=== PATIENT | female | born 1995 | race African-American/Black ===

== ENCOUNTER → 2017-02-03 | Outpatient (CLI) | payer OTHER ==
[2017-02-03 11:54] LABS: CH 31.5; CHCM 34.9; HCT 35.8 % (34.0-46.0); HDW 2.58; HGB 12.3 gm/dL (11.4-16.0); MCH 31.3 pg (25.0-35.0); MCHC 34.5 g/dL (31.0-37.0); MCV 90.7 fL (80.0-100.0); Mean Platelet Volume 9.2; RBC 3.94 m/uL (3.80-5.40); RDW 13.5 % (11.5-15.5); WBC 5.4 k/uL (4.0-11.0)
[2017-02-03 12:14] LABS: Glucose 76 mg/dL (74-99); Non-African American GFR(MDRD) >60 (>60 ml/min/1.73 sqM)
--- NOTE | 2017-02-03 12:19 | US ---
EXAMINATION TYPE: US OB <= 14 wk fetus DATE OF EXAM: 02/03/2017 COMPARISON: NONE CLINICAL HISTORY: Z36 CONFIRM DATES. EXAM PERFORMED: Transabdominal (TA) EXAM MEASUREMENTS: GESTATIONAL AGE / DATING Physician Established: not established Dates by LMP: (12 weeks/2 days) EDC: 08/16/17 Dates by First Scan: no prior scan Dates by Current Scan for: (10 weeks/3 days) EDC: 08/29/17 MATERNAL ANATOMY Uterus: 11.6 x 6.0 x 8.0cm Right Ovary: unable to visualize Left Ovary: 2.7 x 1.6 x 1.3cm Post CDS / Adnexa: small amount of free fluid posterior cul-de-sac Presence of free fluid: yes GESTATION / SURVEY CRL: 3.6cm (10 weeks/3 days) Yolk Sac (normal less than 6mm): 0.2cm Heart Rate: 168 bpm Rhythm: Normal IUP: Viable IUP Date of LMP: 11/09/16 Beta HcG (if available): unavailable Single viable IUP 10wks/3days with DIEGO of 08/29/17. Small amount of free fluid posterior cul-de-sac Single live intrauterine gestation is seen as gestational sac, yolk sac, and pole are identifie d. Tiny amount of free fluid is seen in pelvic cul-de-sac on image 24. Left ovary is seen. Right ovary is not clearly identified. No suspicious extraovarian adnexal mass is present. IMPRESSION: Single live intrauterine gestation is seen, mean crown-rump length is 3.6 cm corresponding to a 10 we ek 3 day old fetus.
[2017-02-03 12:48] LABS: Hepatitis B Surface Ag Index 0.05
[2017-02-03 16:15] LABS: Treponemal Ab Non-Reactive (Non-Reactive)
== END | disposition home or self-care (01) ==
LOC: RADUSWWP 10:54
PROVIDERS: ATTEND Obstetrics & Gynecology
DX: O26.811 Pregnancy related exhaustion and fatigue, first trimester (principal); Z3A.10 10 weeks gestation of pregnancy
CPT/HCPCS: 76801; 82565; 82947; 85027; 86762; 86780; 86850; 86900; 86901; 87340; 87390

== ENCOUNTER → 2017-03-24 | Outpatient (CLI) | payer BC, OTHER | END | disposition home or self-care (01) | LOC: LABWHC1 12:57 | PROVIDERS: ATTEND Obstetrics & Gynecology | DX: Z34.82 Encounter for supervision of other normal pregnancy, second trimester (principal) | CPT/HCPCS: 36415; 82105; 82677; 84702; 86336 ==

== ENCOUNTER 2017-05-01 21:06 | Outpatient (CLI) | payer BC, OTHER ==
[2017-05-01 22:04] VITALS: BP 115/73; PULSE 78; RESP 16; TEMP 97.3
[2017-05-01 22:09] LABS: Appearance,Urine Clear (Clear); Bacteria,Urine Rare /hpf; Bilirubin,Urine Negative (Negative); Glucose,Urine (UA) Negative (Negative); Ketones,Urine Negative (Negative); Leukocyte Esterase,Urine Small (Negative); Mucus,Urine Few /hpf; Nitrite,Urine Negative (Negative); Particle Count 5687; Protein,Urine Trace (Negative); RBC,Urine <1 /hpf (0-5); Specific Gravity,Urine 1.022 (1.001-1.035); Squamous Epithelial Cell,Urine 2 /hpf (0-4); UA Billing (MACRO vs. MICRO) MICRO; Urobilinogen,Urine <2.0 mg/dL (<2.0); WBC,Urine 15 /hpf (0-5)
[2017-05-01] MEDS ORDERED: ceFAZolin 2,000 MG in DEXTROSE/WATER 1 50ML.BAG IVPB STA (22:33)
[2017-05-01] MEDS ORDERED: LACTATED RINGERS 1,000 ML IV SCH (22:45)
[2017-05-01] MEDS ORDERED: ceFAZolin IN SWFI 2 GM/20 ML SYRINGE IVP ONE (22:45)
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
== END 2017-05-01 23:30 | disposition home or self-care (01) ==
LOC: FBPOP 21:06
PROVIDERS: ATTEND Obstetrics & Gynecology
DX: O23.42 Unspecified infection of urinary tract in pregnancy, second trimester (principal); Z3A.22 22 weeks gestation of pregnancy
CPT/HCPCS: 99214; 96360; 96375; 81001; 80306; 87086; J0690

== ENCOUNTER 2018-06-01 09:05 | Outpatient (CLI) | payer BC, OTHER ==
[2018-06-01 09:45] VITALS: BP 115/65; PULSE 78; RESP 16; TEMP 97.1
[2018-06-01] MEDS ORDERED: BETAMET ACET-BETAMETH SOD PHOS 6 MG/ML VIAL IM SCH (10:30)
--- NOTE | 2018-06-01 14:03 | P.MSEPDOC ---
Presenting Problems - Arrival Data Date of Arrival on Unit: 06/01/18 Time of Arrival on Unit: 09:04 Mode of Transport: Ambulatory - Complaint OB-Reason for Admission/Chief Complaint: Other Comment: cramping for 2 weeks, seen in [facility] and told if cramping continues to be seen Medical History - Information : 2 Para: 1 Term: 0 : 1 Abortions: Spontaneous or Elective: 0 Number of Living Children: 1 - Gestational Age Gestational Age by DIEGO (wks/days): 27 Weeks and 1 Days - History Complications: Prior Review of Systems - Review of Systems Constitutional: No problems Breast: No problems ENT: No problems Cardiovascular: No problems Respiratory: No problems Gastrointestinal: No problems Genitourinary: No problems Musculoskeletal: No problems Neurological: No problems Skin: No problems Vital Signs - Temperature Temperature: 97.1 F Temperature Source: Temporal Artery Scan - Pulse Right Sitting Brachial Pulse Rate: 78 Pulse Assessment Method: Automatic Cuff - Respirations Respiratory Rate: 16 O2 Sat by Pulse Oximetry: 99 - Blood Pressure Right Arm Blood Pressure: 115/65 Blood Pressure Mean: 81 Blood Pressure Source: Automatic Cuff Medical Screen Scoring (Pre) - Cervical Exam Dilation: 0 cm = 0 Membranes: Intact - Uterine Contractions Frequency: N/A Duration: N/A Intensity: N/A - Maternal Vital Signs Maternal Temperature: N/A Maternal Blood Pressure: N/A Signs of Preeclampsia: N/A Maternal Respirations: N/A - Pain Assessment Pain Location and Character: Abdomen Pain Scale Used: Numeric (1 - 10) Pain Intensity: 6 Pain Description: *Acute, Cramping Pain Radiation Location: none Pain Frequency: Intermittent Pain Duration Units: cramp/contraction lasts less than a minute Pain Behavior: None Exhibited Pain Aggravating Factors: Activity, Lifting, Walking - Maternal Trauma Maternal Trauma: N/A - Assessment Baseline FHR: 145 Heart Rate - NICHD Category: Category I (Normal) = 0 Position: N/A Station: N/A - Total Score Total Score (Pre): 0 - Level of Risk Level of Risk: Low (0-5) Physician Notification (Pre) - Physician Notified Physician Notified Date: 06/01/18 Physician Notified Time: 09:22 Physician/Practitioner Notifed:: PAULA New Order Received: Yes - Notification Comment Comment: FFN positive-Dr Hackett notified at 1022, orders for celestone 12mg IM, repeat dose in 24 hours. Pt to be off work and on pelvic rest Disposition - Disposition OB Disposition: Discharge to home, Written follow up instructions reviewed Discharge Date: 06/01/18 Discharge Time: 10:45 I agree with the RN Medical Screening Exam: Yes Risk & Benefit of care provided described in d/c instruction: Yes Diagnosis: FALSE LABOR BEFORE 37 COMPLETED WEEKS OF GEST, SECOND TRI
== END 2018-06-01 10:45 | disposition home or self-care (01) ==
LOC: FBPOP 09:05
PROVIDERS: ATTEND Obstetrics & Gynecology
DX: O47.02 False labor before 37 completed weeks of gestation, second trimester (principal); Z3A.27 27 weeks gestation of pregnancy
CPT/HCPCS: 99214; 96372; 82731; J0702

== ENCOUNTER 2018-06-02 10:58 | Outpatient (CLI) | payer BC, OTHER ==
[2018-06-02] MEDS ORDERED: BETAMET ACET-BETAMETH SOD PHOS 6 MG/ML VIAL IM SCH (11:15)
[2018-06-02 11:33] VITALS: BP 108/63; PULSE 96; RESP 16; TEMP 98.4
--- NOTE | 2018-06-02 12:00 | P.MSEPDOC ---
Presenting Problems - Arrival Data Date of Arrival on Unit: 06/02/18 Time of Arrival on Unit: 11:01 Mode of Transport: Ambulatory - Complaint OB-Reason for Admission/Chief Complaint: Celestone Injection Comment: pt here for second dose of celestone Medical History - Information : 2 Para: 1 Term: 0 : 1 Abortions: Spontaneous or Elective: 0 Number of Living Children: 1 - Gestational Age Gestational Age by DIEGO (wks/days): 27 Weeks and 2 Days Review of Systems - Review of Systems Constitutional: No problems Breast: No problems ENT: No problems Cardiovascular: No problems Respiratory: No problems Gastrointestinal: No problems Genitourinary: No problems Musculoskeletal: No problems Neurological: No problems Skin: No problems Vital Signs - Temperature Temperature: 98.4 F Temperature Source: Oral - Pulse Right Brachial Pulse Rate: 96 Pulse Assessment Method: Automatic Cuff - Respirations Respiratory Rate: 16 Oxygen Delivery Method: Room Air O2 Sat by Pulse Oximetry: 98 - Blood Pressure Right Arm Blood Pressure: 108/63 Blood Pressure Mean: 78 Blood Pressure Source: Automatic Cuff Medical Screen Scoring (Pre) - Cervical Exam Dilation: Exam Deferred Effacement: Exam Deferred - Uterine Contractions Frequency: N/A Duration: N/A Intensity: Contraction palpated strong = 1 - Maternal Vital Signs Maternal Temperature: N/A Maternal Blood Pressure: N/A Signs of Preeclampsia: N/A Maternal Respirations: N/A - Pain Assessment Pain Scale Used: Numeric (1 - 10) Pain Intensity: 0 Pain Management Goal: 0 Pain Behavior: Vocalization - Maternal Trauma Maternal Trauma: N/A - Assessment Baseline FHR: 140 Heart Rate - NICHD Category: Category I (Normal) = 0 Position: N/A Station: N/A - Total Score Total Score (Pre): 1 - Level of Risk Level of Risk: Low (0-5) Physician Notification (Pre) - Physician Notified Physician Notified Date: 06/02/18 Spoke With: dr short New Order Received: No - Notification Comment Comment: may discharge to home Disposition - Disposition OB Disposition: Discharge to home Discharge Date: 06/02/18 Discharge Time: 11:30 I agree with the RN Medical Screening Exam: Yes Risk & Benefit of care provided described in d/c instruction: Yes Diagnosis: LABOR SECOND TRI W DEL SECOND TRI, FETUS 1 (celestone )
== END 2018-06-02 11:30 | disposition home or self-care (01) ==
LOC: FBPOP 10:58
PROVIDERS: ATTEND Obstetrics & Gynecology
DX: O60.12X1 Preterm labor second trimester with preterm delivery second trimester, fetus 1 (principal); Z3A.27 27 weeks gestation of pregnancy
CPT/HCPCS: 99214; 96372; J0702

== ENCOUNTER 2018-06-22 12:03 | Outpatient (CLI) | payer BC, OTHER ==
[2018-06-22] MEDS ORDERED: LACTATED RINGERS 1,000 ML IV ONE (12:09)
[2018-06-22] MEDS ORDERED: INDOMETHACIN 25 MG CAP PO STA (12:10)
[2018-06-22] MEDS ORDERED: BETAMET ACET-BETAMETH SOD PHOS 6 MG/ML VIAL IM SCH (12:15)
[2018-06-22] MEDS ORDERED: LACTATED RINGERS 1,000 ML IV SCH (12:15)
[2018-06-22 12:41] LABS: Basophils % (A) 0 %; Eosinophils # (A) 0.1 k/uL (0-0.7); Eosinophils % (A) 2 %; HCT 35.4 % (34.0-46.0); HGB 11.9 gm/dL (11.4-16.0); Lymphocytes # (A) 1.7 k/uL (1.0-4.8); Lymphocytes % (A) 25 %; MCH 30.3 pg (25.0-35.0); MCHC 33.5 g/dL (31.0-37.0); MCV 90.3 fL (80.0-100.0); Monocytes # (A) 0.4 k/uL (0-1.0); Monocytes % (A) 6 %; Neutrophils # (A) 4.4 k/uL (1.3-7.7); Neutrophils % (A) 64 %; Platelet Count 120 k/uL (150-450); RBC 3.92 m/uL (3.80-5.40); RDW 13.1 % (11.5-15.5); WBC 6.9 k/uL (4.0-11.0)
--- NOTE | 2018-06-22 12:55 | P.TRANS ---
Providers Date of admission: 06/22/2018 Expected date of discharge: 06/22/18 Attending physician: Kathie Hackett Primary care physician: Stated None Hospital Course: This is a 22-year-old female 3 para 1 with an estimated date of confinement of 08/30/2018, estimated gestational age of 30 and one sevenths weeks, who presented to the office for routine visit today. She complained of cramping in her lower abdomen since last night that have been occurring very frequently every few minutes. She stated it continued up until her appointment time today. Her cervix was noted to be 4 cm/60%/-2 station in the office today. Last week she was noted to be 3-3-1/2 cm but she was not feeling any contractions at that time. She did receive Celestone 2 doses on June 02 and . She is also been getting [place] injections weekly. Her last baby delivered at 29 weeks' after spontaneous rupture of membranes. She has been seen by maternal- medicine during this and has been on bedrest and pelvic rest. I spoke with Dr. Ortiz today and he recommends that she get another dose of steroids and be transported to [facility] in [place] for high risk care. She was also given 1 dose of Indocin 100 mg by mouth in triage. She currently denies feeling any cramping at this time. She is not showing any regular contractions on the monitor. Her REBECCA in the office today was 16.1. Fetus was in the vertex presentation. She will be transported by ambulance to [facility] under the care of Dr. Ortiz. Patient Condition at Discharge: Stable Plan - Transfer Summary Transfer Medications: Active Medications Generic Name Dose Route Start Last Admin Trade Name Freq PRN Reason Stop Dose Admin Betamethasone Acet/Betameth SodPhos 12 mg 06/22/18 12:15 06/22/18 12:19 Celestone Soluspan IM 06/23/18 12:16 12 mg Q24H JEFFREY Administration Lactated Ringer's 1,000 mls @ 999 mls/hr 06/22/18 12:09 06/22/18 12:18 Lactated Ringers IV 06/22/18 13:09 999 mls/hr .Q1H1M ONE Administration Lactated Ringer's 1,000 mls @ 150 mls/hr 06/22/18 12:15 Lactated Ringers IV .Q6H40M [facility] Follow up Appointment(s)/Referral(s): Kathie Hackett DO [Doctor of Osteopathic Medicine] - 1 Week Discharge Disposition: OTHER INSTITUTION NOT DEFINED - Out of Hospital Transfer - Req. Specs Out of Hospital Transfer - Requested Specifics: Other Non-Acute (Maternal- medicine/high risk obstetrics)
[2018-06-22 14:15] VITALS: BP 123/58; PULSE 89; RESP 16; TEMP 98.2
--- NOTE | 2018-06-24 07:31 | P.MSEPDOC ---
Presenting Problems - Arrival Data Date of Arrival on Unit: 06/22/18 Time of Arrival on Unit: 12:00 Mode of Transport: Ambulatory - Complaint OB-Reason for Admission/Chief Complaint: Rule Out PROM Comment: PT SENT FROM OFFICE AND DR MITCHELL AT BEDSIDE Medical History - Information : 3 Para: 1 Term: 0 : 1 Abortions: Spontaneous or Elective: 1 Number of Living Children: 1 - Gestational Age Gestational Age by DIEGO (wks/days): 30 Weeks and 1 Days - History Complications: Incompetent Cervix Review of Systems - Review of Systems Constitutional: No problems Breast: No problems ENT: No problems Cardiovascular: No problems Respiratory: No problems Gastrointestinal: No problems Genitourinary: No problems Musculoskeletal: No problems Neurological: No problems Skin: No problems Vital Signs - Temperature Temperature: 98.2 F Temperature Source: Oral - Pulse Sitting Pulse Rate: 89 Pulse Assessment Method: Automatic Cuff - Respirations Respiratory Rate: 16 Oxygen Delivery Method: Room Air - Blood Pressure Sitting Blood Pressure: 123/58 Blood Pressure Mean: 79 Blood Pressure Source: Automatic Cuff Medical Screen Scoring (Pre) - Cervical Exam Dilation: 4-7 cm = 2 Membranes: Intact - Uterine Contractions Frequency: N/A - Maternal Vital Signs Maternal Temperature: N/A Signs of Preeclampsia: N/A - Pain Assessment Pain Scale Used: Numeric (1 - 10) Pain Intensity: 0 Pain Management Goal: 0 Pain Duration: 0 Pain Behavior: None Exhibited - Assessment Baseline FHR: 140 Heart Rate - NICHD Category: Category I (Normal) = 0 NST: Reactive Position: N/A Station: N/A - Total Score Total Score (Pre): 2 - Level of Risk Level of Risk: Low (0-5) Physician Notification (Pre) - Physician Notified Physician Notified Date: 06/22/18 Physician Notified Time: 12:30 Physician/Practitioner Notifed:: DR MITCHELL New Order Received: Yes - Notification Comment Comment: AT BEDSIDE Disposition - Disposition OB Disposition: Transfer to other dept./facility Discharge Date: 06/22/18 Discharge Time: 14:15 I agree with the RN Medical Screening Exam: Yes Risk & Benefit of care provided described in d/c instruction: Yes Diagnosis: LABOR WITHOUT DELIVERY, THIRD TRIMESTER
== END 2018-06-22 14:16 | disposition other institution (70) ==
LOC: FBPOP 12:03
PROVIDERS: ATTEND Obstetrics & Gynecology
DX: O60.03 Preterm labor without delivery, third trimester (principal); Z3A.30 30 weeks gestation of pregnancy
CPT/HCPCS: 59025; 96360; 96361; 96372; 85025; J0702

== ENCOUNTER 2018-08-01 09:36 | Inpatient (IN) | payer BC, OTHER ==
[2018-08-01] MEDS ORDERED: LIDOCAINE 0.5% (PF) 5 MG/ML (50 ML SDV) SQ PRN (09:44)
[2018-08-01] MEDS ORDERED: TERBUTALINE 1 MG/ML VIAL SQ PRN (09:44)
[2018-08-01] MEDS ORDERED: METHYLERGONOVINE 0.2 MG/ML 1 ML AMP IM PRN (09:44)
[2018-08-01] MEDS ORDERED: OXYTOCIN 10 UNIT/ML 1 ML VIAL IM PRN (09:44)
[2018-08-01] MEDS ORDERED: CARBOPROST TROMETHAMINE 250 MCG/ML 1 ML AMP IM PRN (09:44)
[2018-08-01] MEDS ORDERED: AMPICILLIN 2,000 MG in SODIUM CHLORIDE 0.9% 100 ML IVPB STA (09:44)
[2018-08-01] MEDS ORDERED: OXYTOCIN 20 UNITS/1000 ML NS 1,000 ML IV SCH ×2 (09:45→13:59)
[2018-08-01] MEDS ORDERED: LACTATED RINGERS 1,000 ML IV SCH (09:45)
[2018-08-01 10:02] LABS: Basophils % (A) 0 %; Eosinophils # (A) 0.2 k/uL (0-0.7); Eosinophils % (A) 3 %; HCT 33.9 % (34.0-46.0); HGB 11.1 gm/dL (11.4-16.0); Lymphocytes # (A) 2.5 k/uL (1.0-4.8); Lymphocytes % (A) 33 %; MCHC 32.8 g/dL (31.0-37.0); MCV 91.6 fL (80.0-100.0); Mean Platelet Volume 9.3; Monocytes # (A) 0.6 k/uL (0-1.0); Monocytes % (A) 8 %; Neutrophils # (A) 4.2 k/uL (1.3-7.7); Neutrophils % (A) 54 %; Platelet Count 158 k/uL (150-450); RDW 13.7 % (11.5-15.5); WBC 7.8 k/uL (4.0-11.0)
[2018-08-01 10:06] VITALS: BMI 27.2
[2018-08-01] MEDS ORDERED: BUTORPHANOL 1 MG/ML 1 ML VIAL IV PRN (11:49)
--- NOTE | 2018-08-01 13:29 | P.HPOB ---
History of Present Illness H&P Date: 08/01/18 Chief Complaint: Advanced cervical dilation This is a 22-year-old female 3 para 1 with an estimated date of confinement of 08/30/2018, estimated gestational age of 35-6/7 weeks, who presents to labor and delivery after being seen in the office today for her routine visit and found to be 7 cm. She denies feeling any regular contractions. She did have some vaginal bleeding was some small clots week ago but has had none since that time. Last week she was noted to be 5 cm. She has had a history of labor during this and has been seen by maternal medicine throughout the . She has been on [place] weekly up until 35 weeks and did receive Celestone 2 doses in May. She has been dilated since approximately 28 weeks. labs: GC/chlamydia-negative Hepatitis B surface antigen-negative RPR-nonreactive Rubella-immune Blood type-80 positive Antibody screen-negative HIV-nonreactive Hemoglobin-12.5 Random glucose-52 One hour Glucola-85 Obstetrical history: . History of 1 delivery at 29 weeks' vaginally and 1 miscarriage. Gynecologic history: She has been treated for chlamydia in the past and also for Trichomonas. Social history: She is single. 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 Review of Systems Constitutional: Denies chills, Denies fever Eyes: denies blurred vision, denies pain Ears, nose, mouth and throat: Denies headache, Denies sore throat Cardiovascular: Denies chest pain, Denies shortness of breath Gastrointestinal: Reports abdominal pain (Occasional contraction) Genitourinary: Reports pelvic pain, Reports Musculoskeletal: Reports low back pain Integumentary: Denies pruritus, Denies rash Neurological: Denies numbness, Denies weakness Psychiatric: Denies anxiety, Denies depression Past Medical History Past Medical History: No Reported History History of Any Multi-Drug Resistant Organisms: None Reported Past Surgical History: No Surgical Hx Reported Past Anesthesia/Blood Transfusion Reactions: No Reported Reaction Past Psychological History: No Psychological Hx Reported Smoking Status: Never smoker Past Alcohol Use History: None Reported Past Drug Use History: None Reported Medications and Allergies Home Medications Medication Instructions Recorded Confirmed Type RX: Pnv 11/Iron Fum/Folic Acid/Om3 1 tab PO DAILY 05/01/17 06/02/18 History [Virt-Soham Dha Softgel] Allergies Allergy/AdvReac Type Severity Reaction Status Date / Time peanut Allergy Itching Verified 08/01/18 09:43 Exam Osteopathic Statement: *. No significant issues noted on an osteopathic structural exam other than those noted in the History and Physical/Consult. Vital Signs Temp Pulse Resp BP 08/01/18 09:42 97.8 F 100 18 109/66 Intake and Output 07/31/18 08/01/18 08/01/18 22:59 06:59 14:59 Other: Weight 69.763 kg HEENT: Within normal limits Heart: Regular rate and rhythm Lungs: Clear to auscultation bilaterally Abdomen: Cervix: 7 cm/60-70%/-2 station heart tones: Reactive Contractions: Irregular Extremities: Negative Homans Results Result Diagrams: 08/01/18 09:48 Abnormal Lab Results - Last 24 Hours (Table) 08/01/18 Range/Units 09:48 RBC 3.70 L (3.80-5.40) m/uL Hgb 11.1 L (11.4-16.0) gm/dL Hct 33.9 L (34.0-46.0) % Assessment and Plan (1) 35 weeks gestation of Current Visit: Yes Status: Acute Code(s): Z3A.35 - 35 WEEKS GESTATION OF SNOMED Code(s): 68960247 (2) labor in third trimester Current Visit: Yes Status: Acute Code(s): O60.03 - LABOR WITHOUT DELIVERY, THIRD TRIMESTER SNOMED Code(s): 2246412 Plan: Admission for advanced cervical dilation. Artificial rupture membranes and oxytocin augmentation of labor. Antibiotic prophylaxis secondary to unknown group B streptococcus. Expectant management.
--- NOTE | 2018-08-01 13:55 | P.PROBDLV ---
Vaginal Delivery Note - . Vaginal Delivery Note: The patient progressed to about 9-1/2 cm and had an uncontrollable urge to push. She began pushing and cervix did stretch to complete with pushing. 's head came to a crown and then delivered across the perineum followed by the anterior shoulder. She was not able to stop pushing and nuchal cord times one was reduced around the body with delivery. was placed on mother's abdomen and nose and mouth were bulb suctioned. Cord was clamped and cut and was taken to warmer for evaluation. A viable male is noted with scores of 8 at 1 minute and 8 at 5 minutes. weight is pending at this time. Placenta delivered shortly thereafter, intact, with a three-vessel cord. Uterus contracted well after oxytocin was given and uterine massage was carried out. Inspection of the perineum revealed a small first- degree perineal laceration. This area was anesthetized with 1% lidocaine and sutured with 3-0 Vicryl suture in a running locked fashion. Estimated blood loss is approximately 100 mL's. Both mother and infant are in stable condition.
[2018-08-01] MEDS ORDERED: SIMETHICONE 80 MG CHEWABLE PO PRN (13:59)
[2018-08-01] MEDS ORDERED: WITCH HAZEL 1 EACH MED..PAD TOPICAL PRN (13:59)
[2018-08-01] MEDS ORDERED: HYDROCORTISONE 2.5% RECTAL CREAM 30 GM TUBE RECTAL PRN (13:59)
[2018-08-01] MEDS ORDERED: diphenhydrAMINE 25 MG CAP PO PRN (13:59)
[2018-08-01] MEDS ORDERED: BENZOCAINE/MENTHOL SPRAY 1 GM/SPRAY AEROSOL TOPICAL PRN (13:59)
[2018-08-01] MEDS ORDERED: diphenhydrAMINE 50 MG/ML 1 ML VIAL IVP PRN ×2 (13:59)
[2018-08-01] MEDS ORDERED: LANOLIN CREAM 5 GM TUBE TOPICAL PRN (13:59)
[2018-08-01] MEDS ORDERED: diphenhydrAMINE 50 MG CAP PO PRN (13:59)
[2018-08-01] MEDS ORDERED: ZOLPIDEM 5 MG TAB PO PRN (13:59)
[2018-08-01] MEDS ORDERED: AMPICILLIN 1,000 MG in SODIUM CHLORIDE 0.9% 50 ML IVPB SCH (14:00)
[2018-08-01] MEDS: IBUPROFEN 600 MG TAB PO PRN ×2 (14:26→21:16)
[2018-08-01] MEDS: ACETAMINOPHEN TAB 325 MG TAB PO PRN (15:33)
[2018-08-01] MEDS: SENNOSIDES-DOCUSATE SODIUM 1 EACH TAB PO SCH (22:31)
[2018-08-02] MEDS: SENNOSIDES-DOCUSATE SODIUM 1 EACH TAB PO SCH ×2 (07:40→22:25)
--- NOTE | 2018-08-02 08:00 | P.PNOBGVD ---
Subjective - Subjective Principal diagnosis: Status post vaginal delivery day #1 Interval history: Patient is doing okay. Pain is fairly well controlled with oral pain medication. Lochia is decreasing. She is attempting to pump breastmilk but has not had any milk and then yet. Baby is in level I nursery on oxygen. Patient reports: Reports appetite normal, Reports voiding normally, Reports pain well controlled, Reports ambulating normally : other (In level I nursery) Objective - Latest Vital Signs Latest vital signs: Vital Signs Temp Pulse Resp BP 08/02/18 04:00 98.4 F 89 16 106/70 08/01/18 23:24 98.6 F 82 16 105/63 08/01/18 20:00 98.2 F 80 16 112/72 08/01/18 16:00 98.1 F 76 18 106/61 08/01/18 15:30 97.5 F L 86 18 107/64 08/01/18 15:00 98.2 F 80 18 112/67 08/01/18 14:45 86 111/63 08/01/18 14:30 97.3 F L 89 18 110/63 08/01/18 14:15 93 116/64 08/01/18 14:00 97.8 F 87 18 107/52 08/01/18 09:42 97.8 F 100 18 109/66 Intake and Output 08/01/18 08/02/18 08/02/18 22:59 06:59 14:59 Other: # Voids 1 1 - Exam Extremities: Present: normal. Absent: tenderness, edema Abdomen: Present: normal appearance, soft. Absent: distention, tenderness Uterus: Present: normal, firm. Absent: tenderness - Labs Labs: Abnormal Lab Results - Last 24 Hours (Table) 08/01/18 Range/Units 09:48 RBC 3.70 L (3.80-5.40) m/uL Hgb 11.1 L (11.4-16.0) gm/dL Hct 33.9 L (34.0-46.0) % Assessment and Plan Assessment: Status post vaginal delivery day #1 (1) 35 weeks gestation of Current Visit: Yes Status: Acute Code(s): Z3A.35 - 35 WEEKS GESTATION OF SNOMED Code(s): 72736562 (2) labor in third trimester Current Visit: Yes Status: Acute Code(s): O60.03 - LABOR WITHOUT DELIVERY, THIRD TRIMESTER SNOMED Code(s): 1135268 Plan: Continue with care. Anticipate discharge home tomorrow.
[2018-08-02 08:01] LABS: Basophils # (A) 0.1 k/uL (0-0.2); Basophils % (A) 1 %; Eosinophils # (A) 0.2 k/uL (0-0.7); Eosinophils % (A) 1 %; HCT 33.8 % (34.0-46.0); HGB 10.9 gm/dL (11.4-16.0); Lymphocytes # (A) 2.8 k/uL (1.0-4.8); Lymphocytes % (A) 23 %; MCH 29.7 pg (25.0-35.0); MCHC 32.2 g/dL (31.0-37.0); MCV 92.2 fL (80.0-100.0); Mean Platelet Volume 9.4; Monocytes # (A) 0.8 k/uL (0-1.0); Monocytes % (A) 7 %; Neutrophils # (A) 8.1 k/uL (1.3-7.7); Neutrophils % (A) 66 %; Platelet Count 177 k/uL (150-450); RBC 3.67 m/uL (3.80-5.40); RDW 13.8 % (11.5-15.5); WBC 12.3 k/uL (4.0-11.0)
[2018-08-02] MEDS: ACETAMINOPHEN TAB 325 MG TAB PO PRN (08:15)
[2018-08-02] MEDS: IBUPROFEN 600 MG TAB PO PRN (16:04)
[2018-08-03] MEDS: ACETAMINOPHEN TAB 325 MG TAB PO PRN ×2 (00:13→09:19)
--- NOTE | 2018-08-03 07:43 | P.DS ---
Providers Date of admission: 08/01/18 09:36 Expected date of discharge: 08/03/18 Attending physician: Kathie Hackett Primary care physician: Stated None - Discharge Diagnosis(es) (1) 35 weeks gestation of Current Visit: Yes Status: Acute (2) labor in third trimester Current Visit: Yes Status: Acute Hospital Course: This is a 22-year-old female 3 para 1 at 35-6/7 weeks who presented with advanced cervical dilation from the office noting to be 7 cm. She underwent oxytocin augmentation of labor and delivered vaginally a viable male with scores of 8 at 1 minute and 8 at 5 minutes. Baby did go to level I nursery for antibiotics. Her course was essentially uncomplicated. Lochia has been decreasing. Pain is fairly well controlled with Tylenol. Vital signs are stable. Abdomen is soft with fundus firm and nontender. Extremities show negative Homans. Impression is status post vaginal delivery day #2. Plan is to discharge home today. Routine instructions are given. She is given a prescription for ibuprofen and a breast pump. She is advised follow-up in the office in 6 weeks for check. She is advised to call the office if she has any further questions or concerns prior to her appointment time. Procedures: Oxytocin augmentation of labor Spontaneous vaginal delivery of a viable male infant on 08/01/2018 Patient Condition at Discharge: Stable Plan - Discharge Summary New Discharge Prescriptions: New Ibuprofen [Motrin] 600 mg PO Q6HR PRN #60 tab PRN Reason: Mild Pain Or Fever >= 100.5 Continue Pnv 11/Iron Fum/Folic Acid/Om3 [Virt-Soham Dha Softgel] 1 tab PO DAILY Discharge Medication List Pnv 11/Iron Fum/Folic Acid/Om3 [Virt-Soham Dha Softgel] 1 tab PO DAILY 05/01/17 [ History] Ibuprofen [Motrin] 600 mg PO Q6HR PRN #60 tab 08/03/18 [Rx] Follow up Appointment(s)/Referral(s): Kathie Hackett DO [Doctor of Osteopathic Medicine] - 6 Weeks Activity/Diet/Wound Care/Special Instructions: Instructions 1. Do not begin any exercise program for 3 weeks. 2. Do not resume sexual relations for 3 weeks or longer if uncomfortable. 3. You may take tub baths or showers at any time. 4. You may use tampons if desired after 3 weeks. 5. Keep the area of episiotomy (stitches) clean and dry. 6. If you are not nursing, wear a good fitting, supportive bra during the day and limit fluid intake for at least 1 week to prevent breast engorgement. 7. Call the office, [phone], within the next week to make appointment for your 6 week checkup if it has not already been made. 8. Report any of the following occurrences to the doctor promptly: a. Heavy, excessive bleeding b. Chills, fever c. Burning or frequency of urination d. Pain or redness and breasts if nursing e. Increasing pain or swelling in episiotomy (stitches). In addition to the above instructions, the following additional should be followed: 1. No heavy lifting or straining (exercising) until after 6 week checkup. 2. Keep abdominal incision clean and dry: You may wear a dressing if more comfortable. 3. Make office appointment for 10 days after going home or as instructed by her doctor. Discharge Disposition: HOME SELF-CARE
[2018-08-03 08:32] VITALS: BP 106/65; PULSE 76; RESP 16; TEMP 98.4
[2018-08-03] MEDS: SENNOSIDES-DOCUSATE SODIUM 1 EACH TAB PO SCH (09:21)
== END 2018-08-03 13:35 | disposition home or self-care (01) | DRG 807 ==
LOC: 4FBP 09:36
PROVIDERS: ADMIT Obstetrics & Gynecology; ATTEND Obstetrics & Gynecology
PROC: 10E0XZZ Delivery of Products of Conception, External Approach (ICD-10-PCS; principal; 2018-08-01)
PROC: 0HQ9XZZ Repair Perineum Skin, External Approach (ICD-10-PCS; 2018-08-01)
PROC: 00HU33Z Insertion of Infusion Device into Spinal Canal, Percutaneous Approach (ICD-10-PCS; 2018-08-01)
PROC: 3E0R3BZ Introduction of Anesthetic Agent into Spinal Canal, Percutaneous Approach (ICD-10-PCS; 2018-08-01)
DX: O60.13X0 Preterm labor second trimester with preterm delivery third trimester, not applicable or unspecified (principal); Z37.0 Single live birth; O69.81X0 Labor and delivery complicated by cord around neck, without compression, not applicable or unspecified; O70.0 First degree perineal laceration during delivery; Z3A.35 35 weeks gestation of pregnancy; Z79.899 Other long term (current) drug therapy; Z91.010 Allergy to peanuts
CPT/HCPCS: 85025; 86850; 86900; 86901; 88307

== ENCOUNTER 2019-06-29 13:51 | Emergency (ER) | payer BC, OTHER ==
[2019-06-29 14:59] VITALS: RESP 16; TEMP 98
--- NOTE | 2019-06-29 15:36 | XR ---
EXAMINATION TYPE: XR chest 2V DATE OF EXAM: 06/29/2019 COMPARISON: None HISTORY: 23-year-old female with cough TECHNIQUE: PA and lateral views FINDINGS: The cardiomediastinal silhouette, aorta, and pulmonary vasculature are within normal limits. Lungs an d pleural spaces are clear. IMPRESSION: No acute cardiopulmonary process.
--- NOTE | 2019-06-29 16:19 | ED ---
URI HPI - General Chief Complaint: Upper Respiratory Infection Stated Complaint: Flu like SX Source: patient Mode of arrival: ambulatory Limitations: no limitations - History of Present Illness Initial Comments: 23yo female no hx, denies , cc of cough, congestion x 1 day. Child flu B+. Patient denies CP, SOB, leg swelling, abdominal pain, nausea vomiting, neck stiffness, headaches. Remaining ROS (-), Patient appears well on arrival. No other complaints. - Related Data Home Medications Medication Instructions Recorded Confirmed Pnv 11/Iron Fum/Folic Acid/Om3 1 tab PO DAILY 05/01/17 06/02/18 [Virt-Soham Dha Softgel] Previous Rx's Medication Instructions Recorded Ibuprofen [Motrin] 600 mg PO Q6HR PRN #60 tab 08/03/18 Oseltamivir [Tamiflu] 75 mg PO Q12HR 5 Days #10 cap 06/29/19 Allergies Allergy/AdvReac Type Severity Reaction Status Date / Time peanut Allergy Itching Verified 06/29/19 14:58 Review of Systems ROS Statement: Those systems with pertinent positive or pertinent negative responses have been documented in the HPI. ROS Other: All systems not noted in ROS Statement are negative. Past Medical History Past Medical History: No Reported History History of Any Multi-Drug Resistant Organisms: None Reported Past Surgical History: No Surgical Hx Reported Past Anesthesia/Blood Transfusion Reactions: No Reported Reaction Past Psychological History: No Psychological Hx Reported Smoking Status: Never smoker Past Alcohol Use History: None Reported Past Drug Use History: None Reported General Exam - General Exam Comments Initial Comments: General: The patient is awake and alert, in no distress, and does not appear acutely ill. Eye: +3 mm pupils are equal, round and reactive to light, extra-ocular movements are intact. No nystagmus. There is normal conjunctiva bilaterally. No signs of icterus. No photophobia Ears, nose, mouth and throat: There are moist mucous membranes and no oral lesions. Oropharynx was not erythematous there is no tonsillar enlargement exudates or lesions. Uvula midline. Tympanic membranes are not erythematous or is no effusions bulging or retraction. No tenderness to palpation of the mastoid. No anterior cervical lymphadenopathy. Rhinorrhea, clear and bilateral nares. No tripoding, no drooling. Neck: The neck is supple, there is no tenderness or JVD. No nuchal rigidity Cardiovascular: There is a regular rate and rhythm. No murmur, rub or gallop is appreciated. Respiratory: Lungs are clear to auscultation, respirations are non-labored, breath sounds are equal. No wheezes, stridor, rales, or rhonchi. No re tractions or abdominal breathing. Gastrointestinal: Soft, non-distended, non-tender abdomen without masses or organomegaly noted. There is no rebound or guarding present. Bowel sounds are unremarkable. Musculoskeletal: Normal ROM, no tenderness. Strength 5/5. Sensation intact. Radial pulses equal bilaterally 2+. Neurological: A&O x 3. CN II-XII intact grossly, There are no obvious motor or sensory deficits. Coordination appears grossly intact. Speech appears normal, no muffling. Skin: Skin is warm and dry and no rashes or lesions are noted. No extremity edema Psychiatric: Cooperative Limitations: no limitations Course Vital Signs 06/29/19 06/29/19 14:57 16:35 Temperature 98 F 98 F Pulse Rate 89 79 Respiratory 16 16 Rate Blood Pressure 126/72 132/74 O2 Sat by Pulse 98 98 Oximetry Procedures - [facility] [place] Protocol (Time Out) Nurse: Gisell Cochran Medical Decision Making - Medical Decision Making Flu B positive. Lungs clear. CXR clear. Well appearing, nontoxic. 24 hours of symptoms. given tamiflu initial dose and outpatient RX. Patient discharge with PCP f/u and return parameters. Patient agreeable to care plan and d/c. Case discussed with Dr. Louie. - Lab Data Lab Results 06/29/19 Range/Units 15:08 Influenza Type A RNA Not Detected (Not Detectd) Influenza Type B (PCR) Detected H (Not Detectd) Disposition Clinical Impression: Influenza B Disposition: HOME SELF-CARE Condition: Good Instructions (If sedation given, give patient instructions): Influenza in Children (ED) Additional Instructions: Please use medication as discussed. Please follow-up with family doctor in the next 2 days. Please return to emergency room if the symptoms increase or worsen or for any other concerns. Prescriptions: Oseltamivir [Tamiflu] 75 mg PO Q12HR 5 Days #10 cap Is patient prescribed a controlled substance at d/c from ED?: No Referrals: None,Stated [Primary Care Provider] - 1-2 days [facility] [NON-STAFF] - 1-2 days Time of Disposition: 16:18
[2019-06-29 16:36] VITALS: BP 132/74; PULSE 79
== END 2019-06-29 16:35 | disposition home or self-care (01) ==
LOC: EC 13:51
DX: J11.1 Influenza due to unidentified influenza virus with other respiratory manifestations (principal); Z91.010 Allergy to peanuts
CPT/HCPCS: 71046; 87502; 99283

== ENCOUNTER → 2021-02-04 | Outpatient (CLI) | payer OTHER | END | disposition home or self-care (01) | LOC: LABWHC1 10:01 | PROVIDERS: ATTEND Obstetrics & Gynecology | DX: N92.6 Irregular menstruation, unspecified (principal) | CPT/HCPCS: 36415; 84702 ==

== ENCOUNTER 2021-02-18 11:16 | Emergency (ER) | payer OTHER ==
[2021-02-18] MEDS ORDERED: SODIUM CHLORIDE 0.9% 500 ML 500 ML IV STA (12:31)
[2021-02-18] MEDS ORDERED: ONDANSETRON 4 MG/2 ML VIAL IVP STA (12:31)
[2021-02-18 12:45] LABS: Basophils % (A) 0 %; Eosinophils # (A) 0.1 k/uL (0-0.7); Eosinophils % (A) 2 %; HCT 22.5 % (34.0-46.0); HGB 7.9 gm/dL (11.4-16.0); Lymphocytes # (A) 1.9 k/uL (1.0-4.8); Lymphocytes % (A) 30 %; MCH 31.7 pg (25.0-35.0); MCHC 35.1 g/dL (31.0-37.0); MCV 90.1 fL (80.0-100.0); Monocytes # (A) 0.3 k/uL (0-1.0); Monocytes % (A) 5 %; Neutrophils # (A) 3.8 k/uL (1.3-7.7); Neutrophils % (A) 61 %; Platelet Count 180 k/uL (150-450); RBC 2.49 m/uL (3.80-5.40); RDW 13.4 % (11.5-15.5); WBC 6.3 k/uL (3.8-10.6)
[2021-02-18 13:00] LABS: Partial Thromboplastin Time 22.2 sec (22.0-30.0); Prothrombin Time 10.6 sec (9.0-12.0)
[2021-02-18 13:01] LABS: ALT 11 U/L (4-34); AST 14 U/L (14-36); African American GFR (CKD) >90 (>60 ml/min/1.73 sqM); Albumin 3.6 g/dL (3.5-5.0); Alkaline Phosphatase 37 U/L (38-126); Anion Gap 7 mmol/L; Blood Urea Nitrogen 9 mg/dL (7-17); Calcium 9.2 mg/dL (8.4-10.2); Carbon Dioxide 24 mmol/L (22-30); Chloride 105 mmol/L (98-107); Glucose 106 mg/dL (74-99); Non-African American GFR(CKD) >90 (>60 ml/min/1.73 sqM); Sodium 136 mmol/L (137-145); Total Bilirubin 0.2 mg/dL (0.2-1.3)
[2021-02-18 13:02] LABS: Appearance,Urine Cloudy (Clear); Bacteria,Urine Rare /hpf; Bilirubin,Urine Negative (Negative); Blood,Urine Large (Negative); Color,Urine Light Red; Glucose,Urine (UA) Negative (Negative); Ketones,Urine Trace (Negative); Leukocyte Esterase,Urine Trace (Negative); Mucus,Urine Many /hpf; Nitrite,Urine Negative (Negative); PH, Urine 5.5 (5.0-8.0); Protein,Urine 2+ (Negative); RBC,Urine >182 /hpf (0-5); Specific Gravity,Urine 1.028 (1.001-1.035); Urobilinogen,Urine <2.0 mg/dL (<2.0)
[2021-02-18 13:17] LABS: HCG,Quantitative Serum 12734.4 mIU/mL
[2021-02-18 14:23] VITALS: RESP 18
--- NOTE | 2021-02-18 14:29 | ED ---
Female Urogenital HPI - General Source: patient Mode of arrival: wheelchair Limitations: no limitations <Lucina Dee - Last Filed: 02/18/21 15:13> <Shannon Mancuso Armand - Last Filed: 02/18/21 18:27> - General Chief complaint: Vaginal Bleeding Stated complaint: syncope & dizziness Time Seen by Provider: 02/18/21 11:54 - History of Present Illness Initial comments: Patient is a healthy 25-year-old female presenting to the emergency Department with complaints of continued vaginal bleeding over the last 2 days. Patient went to redo her Depo-Provera shot with her HOME HEALTH NURSE, discovered that she was . She then went to a clinic in [place] and had a pill on 02/06/2021, with Dr. Ocampo. She was bleeding a lot over the next few days, more than she thought was normal so went back for evaluation. They put her on 3 days of misoprostol which was last week, she stated bleeding did slow down over after taking the medication and the bleeding resumed. She states she has been having many accident secondary to heavy bleeding, with having to wear to 6 pads at the same time. Patient's hemoglobin was checked on the day of her on 02/06 and it was 13.5. Her hemoglobin was rechecked yesterday after complaints of 2 vaginal bleeding and it was 9.2, per Dr. Ocampo. Patient states she has continued to feel lightheaded, nauseous and yesterday after she returned from the clinic she had a syncopal episode at home. She states she's never had an issue with anemia in the past. She's had 2 previous healthy pregnancies, her HOME HEALTH NURSE is Dr. Hackett. She admits to continued abdominal cramping. She denies any fevers or chills, no chest pain or shortness of breath. She has no further complaints. Her vital signs are stable upon arrival. (Lucina Dee) - Related Data Home Medications Medication Instructions Recorded Confirmed No Known Home Medications 02/18/21 02/18/21 Allergies Allergy/AdvReac Type Severity Reaction Status Date / Time peanut Allergy Itching Verified 02/18/21 13:10 Review of Systems ROS Other: All systems not noted in ROS Statement are negative. <Lucina Dee - Last Filed: 02/18/21 15:13> ROS Other: All systems not noted in ROS Statement are negative. <Shannon Mancuso - Last Filed: 02/18/21 18:27> ROS Statement: Those systems with pertinent positive or pertinent negative responses have been documented in the HPI. Past Medical History Past Medical History: No Reported History History of Any Multi-Drug Resistant Organisms: None Reported Past Surgical History: No Surgical Hx Reported Additional Past Surgical History / Comment(s): Past Anesthesia/Blood Transfusion Reactions: No Reported Reaction Past Psychological History: No Psychological Hx Reported Past Alcohol Use History: None Reported Past Drug Use History: None Reported <Lucina Dee - Last Filed: 02/18/21 15:13> General Exam Limitations: no limitations <Lucina Dee - Last Filed: 02/18/21 15:13> - General Exam Comments Initial Comments: GENERAL: Patient is well-developed and well-nourished. Patient is nontoxic and in no acute distress. HEAD: Atraumatic, normocephalic. EYES: Pupils equal round and reactive to light, extraocular movements intact, sclera anicteric, conjunctiva are normal. Eyelids were unremarkable. ENT: Nares patent, oropharynx clear without exudates. Moist mucous membranes. NECK: Normal range of motion, supple without lymphadenopathy or JVD. LUNGS: Unlabored respirations. Breath sounds clear to auscultation bilaterally and equal. No wheezes rales or rhonchi. HEART: Regular rate and rhythm without murmurs, rubs or gallops. ABDOMEN: Soft, nontender, normoactive bowel sounds. No guarding, no rebound. No masses appreciated. : Deferred MUSCULOSKELETAL: Normal extremities with adequate strength and normal range of motion, no pitting or edema. No clubbing or cyanosis. NEUROLOGICAL: Patient is alert and oriented x 3. Normal speech, normal gait. PSYCH: Normal mood, normal affect. SKIN: Warm, Dry, normal turgor, no rashes or lesions noted. (Lucina Dee) Course Vital Signs 02/18/21 02/18/21 02/18/21 11:20 12:23 13:00 Temperature 98.0 F Pulse Rate 94 Respiratory 16 18 18 Rate Blood Pressure 104/64 O2 Sat by Pulse 98 Oximetry 02/18/21 02/18/21 02/18/21 14:00 15:00 16:00 Temperature Pulse Rate 89 Respiratory 18 18 18 Rate Blood Pressure 96/62 O2 Sat by Pulse 100 100 Oximetry 02/18/21 02/18/21 02/18/21 16:10 16:20 16:50 Temperature 98 F 98.3 F 98.2 F Pulse Rate 90 89 81 Respiratory 18 18 18 Rate Blood Pressure 93/66 108/60 101/57 O2 Sat by Pulse 100 100 Oximetry 02/18/21 02/18/21 17:00 18:00 Temperature Pulse Rate 81 79 Respiratory 18 18 Rate Blood Pressure 101/57 O2 Sat by Pulse 100 100 Oximetry Medical Decision Making - Lab Data Result diagrams: 02/18/21 12:36 02/18/21 12:36 <Lucina Dee - Last Filed: 02/18/21 15:13> - Lab Data Result diagrams: 02/18/21 12:36 02/18/21 12:36 <Shannon Mancuso - Last Filed: 02/18/21 18:27> - Medical Decision Making Patient is a 25-year-old female presenting with continued vaginal bleeding after a medical pill almost 2 weeks ago. She went to [facility] on 02/06 to have , hemoglobin then was 13.5, she's been having b leeding, was rechecked yesterday, hemoglobin is 9.2. I did speak with Dr. Ocampo to confirm this. This was after 3 days of misoprostol. Patient presents today after having a syncopal event yesterday and feeling nauseous and lightheaded. Her hemoglobin today is 7.9. No fevers, vital signs are stable, no signs of infection. Ultrasound today states thickening of the endometrium with focal area of increased flow at the fundal position, no definite intrauterine seen at this time. Nonspecific complex left ovarian cyst. On pelvic exam, patient does have mild to moderate bleeding, no hemorrhaging. I did speak to her HOME HEALTH NURSE, Dr. Hackett, who stated that if she is symptomatic, we can give her a unit of blood. She has control of patient going home after and states that she needs to follow up with the clinic that performed the . I did speak to the patient regarding this, she states she will call right now to make an appointment. I also recommended taking iron supplements. (Lucina Dee) Patient was signed out to me from [place]. Patient is a 25-year-old healthy female who had a on 02/[address] Ocampo through [facility]. Patient had significant bleeding issues after the procedure was placed on misprostol for 3 days. Patient finished the course and continues to have vaginal bleeding. States she wears 2 pads at a time and goes through both of them in an hour. She has been lightheaded and today had a syncopal episode. Laboratory studies demonstrate that the patient has a measurable beta Quant and a worsening anemia. She did speak with Dr. Hackett. Patient was to receive a unit of blood if symptomatic and follow-up with Dr. Ocampo in office. I did speak with Dr. Parish and he states that the patient is now too complicated for him to take care of and he would prefer if the patient follows up with an OBGYN that has hospital privilages. I did speak again with Dr. Hackett who does state that she will follow the patient as Dr. Ocampo is no longer will to care for the patient. The patient will be transfused one unit of blood today and given 0.2 mg of Methergine. She is given a prescription to have her CBC and beta Quant drawn on Monday. She is instructed to call the office on Monday to make an appointment with Dr. Hackett and she will see her next week. The patient has any new or worsening symptoms or begins having worsening vaginal bleeding she is to return to the emergency room. Patient understood this. She was given written and verbal discharge instructions and discharged home in stable condition (Shannon Mancuso) - Lab Data Lab Results 02/18/21 02/18/21 02/18/21 Range/Units 12:10 12:36 12:36 WBC 6.3 (3.8-10.6) k/uL RBC 2.49 L (3.80-5.40) m/uL Hgb 7.9 L (11.4-16.0) gm/dL Hct 22.5 L (34.0-46.0) % MCV 90.1 (80.0-100.0) fL MCH 31.7 (25.0-35.0) pg MCHC 35.1 (31.0-37.0) g/dL RDW 13.4 (11.5-15.5) % Plt Count 180 (150-450) k/uL MPV 9.0 Neutrophils % 61 % Lymphocytes % 30 % Monocytes % 5 % Eosinophils % 2 % Basophils % 0 % Neutrophils # 3.8 (1.3-7.7) k/uL Lymphocytes # 1.9 (1.0-4.8) k/uL Monocytes # 0.3 (0-1.0) k/uL Eosinophils # 0.1 (0-0.7) k/uL Basophils # 0.0 (0-0.2) k/uL PT 10.6 (9.0-12.0) sec INR 1.0 (<1.2) APTT 22.2 (22.0-30.0) sec Sodium (137-145) mmol/L Potassium (3.5-5.1) mmol/L Chloride (98-107) mmol/L Carbon Dioxide (22-30) mmol/L Anion Gap mmol/L BUN (7-17) mg/dL Creatinine (0.52-1.04) mg/dL Est GFR (CKD-EPI)AfAm (>60 ml/min/1.73 sqM) Est GFR (CKD-EPI)NonAf (>60 ml/min/1.73 sqM) Glucose (74-99) mg/dL Calcium (8.4-10.2) mg/dL Total Bilirubin (0.2-1.3) mg/dL AST (14-36) U/L ALT (4-34) U/L Alkaline Phosphatase (38-126) U/L Total Protein (6.3-8.2) g/dL Albumin (3.5-5.0) g/dL HCG, Quant mIU/mL Urine Color Urine Appearance (Clear) Urine pH (5.0-8.0) Ur Specific [place] (1.001-1.035) Urine Protein (Negative) Urine Glucose (UA) (Negative) Urine Ketones (Negative) Urine Blood (Negative) Urine Nitrite (Negative) Urine Bilirubin (Negative) Urine Urobilinogen (<2.0) mg/dL Ur Leukocyte Esterase (Negative) Urine RBC (0-5) /hpf Urine Bacteria (None) /hpf Urine Mucus (None) /hpf Blood Type AB Positive Blood Type Recheck AB Pos Bld Type Recheck Status No Antibody Screen NEGATIVE Crossmatch See Detail Spec Expiration Date 02/21/2021 - 230902/18/21 02/18/21 Range/Units 12:36 12:36 WBC (3.8-10.6) k/uL RBC (3.80-5.40) m/uL Hgb (11.4-16.0) gm/dL Hct (34.0-46.0) % MCV (80.0-100.0) fL MCH (25.0-35.0) pg MCHC (31.0-37.0) g/dL RDW (11.5-15.5) % Plt Count (150-450) k/uL MPV Neutrophils % % Lymphocytes % % Monocytes % % Eosinophils % % Basophils % % Neutrophils # (1.3-7.7) k/uL Lymphocytes # (1.0-4.8) k/uL Monocytes # (0-1.0) k/uL Eosinophils # (0-0.7) k/uL Basophils # (0-0.2) k/uL PT (9.0-12.0) sec INR (<1.2) APTT (22.0-30.0) sec Sodium 136 L (137-145) mmol/L Potassium 4.0 (3.5-5.1) mmol/L Chloride 105 (98-107) mmol/L Carbon Dioxide 24 (22-30) mmol/L Anion Gap 7 mmol/L BUN 9 (7-17) mg/dL Creatinine 0.67 (0.52-1.04) mg/dL Est GFR (CKD-EPI)AfAm >90 (>60 ml/min/1.73 sqM) Est GFR (CKD-EPI)NonAf >90 (>60 ml/min/1.73 sqM) Glucose 106 H (74-99) mg/dL Calcium 9.2 (8.4-10.2) mg/dL Total Bilirubin 0.2 (0.2-1.3) mg/dL AST 14 (14-36) U/L ALT 11 (4-34) U/L Alkaline Phosphatase 37 L (38-126) U/L Total Protein 6.0 L (6.3-8.2) g/dL Albumin 3.6 (3.5-5.0) g/dL HCG, Quant 50984.4 mIU/mL Urine Color Light Red Urine Appearance Cloudy H (Clear) Urine pH 5.5 (5.0-8.0) Ur Specific [place] 1.028 (1.001-1.035) Urine Protein 2+ H (Negative) Urine Glucose (UA) Negative (Negative) Urine Ketones Trace H (Negative) Urine Blood Large H (Negative) Urine Nitrite Negative (Negative) Urine Bilirubin Negative (Negative) Urine Urobilinogen <2.0 (<2.0) mg/dL Ur Leukocyte Esterase Trace H (Negative) Urine RBC >182 H (0-5) /hpf Urine Bacteria Rare H (None) /hpf Urine Mucus Many H (None) /hpf Blood Type Blood Type Recheck Bld Type Recheck Status Antibody Screen Crossmatch Spec Expiration Date Disposition <Lucina Dee - Last Filed: 02/18/21 15:13> Is patient prescribed a controlled substance at d/c from ED?: No Time of Disposition: 17:05 <Shannon Mancuso - Last Filed: 02/18/21 18:27> Clinical Impression: , Anemia, Vaginal bleeding, Syncope Disposition: HOME SELF-CARE Condition: Stable Instructions (If sedation given, give patient instructions): Dysfunctional Ut erine Bleeding (ED), Blood Transfusion (DC) Additional Instructions: Return to the hospital on Monday to have your blood drawn. Results will be sent to Dr. Hackett. Call her office on Monday to follow up sometime next week. Return to the emergency room should she have any worsening bleeding Referrals: None,Stated [Primary Care Provider] - 1-2 days Kathie Hackett DO [Doctor of Osteopathic Medicine] - 1-2 days
--- NOTE | 2021-02-18 14:36 | US ---
EXAMINATION TYPE: US transvaginal DATE OF EXAM: 02/18/2021 COMPARISON: NONE CLINICAL HISTORY: 2wks s/p pill , heavy bleeding. by pills 02/06 of 6wk fetus, now will ving continual TECHNIQUE: TV. Transvaginal sonographic images Date of LMP: unknown EXAM MEASUREMENTS: Uterus: 8.8 x 5.0 x 4.5 cm Endometrial Stripe: 2.2 cm Right Ovary: 2.6 x 1.6 x 1.3 cm Left Ovary: 1.9 x 1.7 x 1.8 cm 1. Uterus: Anteverted wnl 2. Endometrium: increased vascularity seen within fundal portion of endo 3. Right Ovary: wnl 4. Left Ovary: 1.9cm complex lesion Spectral, color and waveform doppler imaging shows good arterial and venous flow within the ovaries ; there is no evidence for ovarian torsion. 5. Bilateral Adnexa: wnl 6. Posterior cul-de-sac: wnl IMPRESSION: 1. Thickening of the endometrium with the focal area of increased flow at its fundal portion. No defi nite intrauterine seen at this time. Nonspecific complex left ovarian lesion.
[2021-02-18] MEDS ORDERED: METHYLERGONOVINE 0.2 MG/ML 1 ML AMP IM ONE (16:32)
[2021-02-18 18:33] VITALS: BP 103/57; PULSE 83; TEMP 97.5
== END 2021-02-18 18:55 | disposition home or self-care (01) ==
LOC: EC 11:16
DX: O03.9 Complete or unspecified spontaneous abortion without complication (principal); D64.9 Anemia, unspecified
CPT/HCPCS: 36415; 86900; 86901; 80053; 85025; 85610; 85730; 86850; 86920; 81001; 84702; 93975; 76830; 99284; 96374; 96372; P9016; J2210; J2405

== ENCOUNTER 2021-02-23 11:03 | Day surgery (SDC) | payer OTHER ==
[~2021-02-23 11:03] MED LIST: Pre Op ABX Message 1 EACH MISC MISCELLANE ONE
[2021-02-23] MEDS ORDERED: SODIUM CHLORIDE 0.9% 1,000 ML IV ONE ×2 (11:41→14:08)
[2021-02-23 12:23] LABS: Basophils % (A) 0 %; Eosinophils # (A) 0.1 k/uL (0-0.7); Eosinophils % (A) 2 %; HGB 8.4 gm/dL (11.4-16.0); Lymphocytes # (A) 1.7 k/uL (1.0-4.8); Lymphocytes % (A) 29 %; MCH 31.3 pg (25.0-35.0); MCHC 34.9 g/dL (31.0-37.0); MCV 89.8 fL (80.0-100.0); Mean Platelet Volume 7.9; Monocytes # (A) 0.3 k/uL (0-1.0); Monocytes % (A) 4 %; Neutrophils # (A) 3.6 k/uL (1.3-7.7); Neutrophils % (A) 60 %; Platelet Count 233 k/uL (150-450); RBC 2.67 m/uL (3.80-5.40); RDW 13.9 % (11.5-15.5); WBC 5.9 k/uL (3.8-10.6)
--- NOTE | 2021-02-23 12:43 | P.HPOB ---
History of Present Illness H&P Date: 02/23/21 Chief Complaint: Retained products of conception, vaginal bleeding, symptomatic anemia This is a 25-year-old female 4 para 2021 who presents to the office today after having a termination of at another facility on 02/06/2021 using medication. She bled very heavy at first and did go back to that Dr. She was told that everything looked okay and that nothing was in her uterus. She went to the emergency room on 02/18/2021 and ultrasound showed an endometrial stripe thickness of 2.2 cm with increased vascularity seen within the fundal portion of the endometrium. She was given Methergine 1 dose at that time and one unit of blood. She was also given Methergine 1 and this did slow her bleeding. She states she still is having bleeding but not quite as heavy as it was when she went to the emergency room. Her hemoglobin on 02/18/2021 was 7.9 and today in the office was 7.6 she did receive 1 unit of blood in the hospital on 02/18/2021. She states she is getting dizzy again and has still continued to have some episodes of heavy bleeding. In light of all of these findings and decision is made to proceed with dilation and curettage due to retained products of conception and continued bleeding. I Will also give her 1 unit more of blood due to her symptomatically anemia at this point. Obstetrical history: . History of 2 deliveries, one miscarriage, and one termination of on 02/06/2021. Gynecologic history: She does have a history of chlamydia and Trichomonas. Prior to this she was on Depo-Provera. 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 Review of Systems Constitutional: Reports fatigue, Reports weakness Ears, nose, mouth and throat: Reports headache, Denies sore throat Cardiovascular: Denies chest pain, Denies shortness of breath Respiratory: Denies cough Gastrointestinal: Denies abdominal pain Genitourinary: Reports abnormal vaginal bleeding, Reports pelvic pain Musculoskeletal: Denies low back pain Integumentary: Denies pruritus, Denies rash Neurological: Denies numbness, Denies weakness Psychiatric: Denies anxiety, Denies depression Past Medical History Past Medical History: No Reported History History of Any Multi-Drug Resistant Organisms: None Reported Past Surgical History: No Surgical Hx Reported Additional Past Surgical History / Comment(s): Past Anesthesia/Blood Transfusion Reactions: No Reported Reaction Past Psychological History: No Psychological Hx Reported Past Alcohol Use History: None Reported Past Drug Use History: None Reported Medications and Allergies Home Medications Medication Instructions Recorded Confirmed Type No Known Home Medications 02/18/21 02/23/21 History Allergies Allergy/AdvReac Type Severity Reaction Status Date / Time peanut Allergy Itching Verified 02/23/21 11:23 Exam Osteopathic Statement: *. No significant issues noted on an osteopathic structural exam other than those noted in the History and Physical/Consult. Vital Signs Temp Pulse Resp BP Pulse Ox 02/23/21 11:25 97.0 F L 74 16 100/60 100 Intake and Output 02/22/21 02/23/21 02/23/21 22:59 06:59 14:59 Other: Weight 82.4 kg HEENT: Within normal limits Heart: Regular rate and rhythm Lungs: Clear to auscultation bilaterally Abdomen: Soft, nontender Pelvic exam: Blood noted in vaginal vault with no clots today. Uterus is mid position, small, with no adnexal masses or tenderness palpated Extremities: Negative Homans Results Result Diagrams: 02/23/21 11:40 Abnormal Lab Results - Last 24 Hours (Table) 02/23/21 02/23/21 Range/Units 11:40 11:40 RBC 2.67 L (3.80-5.40) m/uL Hgb 8.4 L (11.4-16.0) gm/dL Hct 24.0 L (34.0-46.0) % Crossmatch See Detail Assessment and Plan (1) Retained products of conception after induced termination of Current Visit: Yes Status: Acute Code(s): O07.4 - FAILED ATTEMPTED TERMINATION OF W/O COMPLICATION SNOMED Code(s): 018409773 (2) Anemia Current Visit: No Status: Acute Code(s): D64.9 - ANEMIA, UNSPECIFIED SNOMED Code(s): 273453973 Plan: Proceed with suction dilation and curettage. I have ordered 1 unit of blood to be transfused. I have discussed the risks, benefits, and alternative therapies for the above- mentioned procedure and for both sedation/anesthesia as well as necessary blood products administration, if indicated, as they pertain to this patient. The patient has indicated her understanding and acceptance of the risks and procedures discussed.
[2021-02-23] MEDS ORDERED: MIDAZOLAM 2 MG/2 ML VIAL ONE (12:57)
[2021-02-23] MEDS ORDERED: LIDOCAINE 1% INJ 10MG/ML (20 ML MDV) ONE (12:57)
[2021-02-23] MEDS ORDERED: PHENYLEPHRINE-0.9% NACL SYG 1,000 MCG/10 ML SYRINGE ONE (12:57)
[2021-02-23] MEDS ORDERED: fentaNYL (PF) 50 MCG/ML 2 ML AMP ONE (12:57)
[2021-02-23] MEDS ORDERED: PROPOFOL 10 MG/ML 20 ML VIAL IV ONE (12:57)
[2021-02-23] MEDS ORDERED: medroxyPROGESTERone 150 MG/ML 1ML VIAL IM ONE (13:15)
--- NOTE | 2021-02-23 13:27 | P.OP ---
Date of Procedure: 02/23/21 Preoperative Diagnosis: Retained products of conception status post induced Symptomatic anemia Continued vaginal bleeding Postoperative Diagnosis: Same Procedure(s) Performed: Suction dilation and curettage Anesthesia: KATELYNN Surgeon: Kathie Hackett Estimated Blood Loss (ml): 20 Pathology: other (Products of conception, uterine contents) Condition: stable Disposition: same day Indications for Procedure: This is a 25-year-old female 4 para 2021 who presents to the office today after having a termination of at another facility on 02/06/2021 using medication. She bled very heavy at first and did go back to that Dr. She was told that everything looked okay and that nothing was in her uterus. She went to the emergency room on 02/18/2021 and ultrasound showed an endometrial stripe thickness of 2.2 cm with increased vascularity seen within the fundal portion of the endometrium. She was given Methergine 1 dose at that time and one unit of blood. She was also given Methergine 1 and this did slow her bleeding. She states she still is having bleeding but not quite as heavy as it was when she went to the emergency room. Her hemoglobin on 02/18/2021 was 7.9 and today in the office was 7.6 she did receive 1 unit of blood in the hospital on 02/18/2021. She states she is getting dizzy again and has still continued to have some episodes of heavy bleeding. In light of all of these findings and decision is made to proceed with dilation and curettage due to retained products of conception and continued bleeding. I Will also give her 1 unit more of blood due to her symptomatically anemia at this point. Operative Findings: Uterus is mid to anteverted position, sounded to 8 cm. Moderate amount of products of conception are obtained Description of Procedure: The patient is taken to the operating room where she is placed in the dorsal lithotomy position. She is prepped and draped in the normal sterile fashion. Her bladder is drained with a catheter and then removed. Examination is performed under anesthesia. Uterus is found to be mid to anteverted position with no adnexal masses palpated. A weighted speculum was placed in the patient's vagina. A right angle retractor is used to visualize the cervix. The anterior lip of the cervix is grasped with a single-tooth tenaculum. Uterus is sounded to 8 cm. Cervix is gently dilated with Duncan dilators until an 8 mm curved suction curet could be placed. Suction curetting was performed with a moderate amount of products of conception obtained. Next a medium-size sharp curet was used with minimal further tissue obtained. Next suction curetting was performed one further time with no additional tissue obtained. Next the single- tooth tenaculum was removed. Pressure was applied with a ring forcep. Once the ring forcep was removed, no active bleeding was noted. All incisions are removed from the vagina. All sponge and needle counts are correct. The patient was then taken to recovery room in stable condition. She will be sent home on doxycycline for 7 days. She will also be given Depo-Provera in recovery room.
[2021-02-23 13:48] VITALS: TEMP 97.9
[2021-02-23 14:32] VITALS: RESP 20
[2021-02-23 14:57] VITALS: BP 108/70; PULSE 90
== END 2021-02-23 15:10 | disposition home or self-care (01) ==
LOC: OR 11:03
PROVIDERS: ATTEND Obstetrics & Gynecology
DX: O03.4 Incomplete spontaneous abortion without complication (principal)
CPT/HCPCS: 86900; 86901; 85025; 86850; 86920; 59812; P9016; J2250; J2001; J3010; J1050; J2370; J2704; 88305

== ENCOUNTER → 2021-06-23 | Outpatient (CLI) | payer OTHER | END | disposition home or self-care (01) | LOC: LABWHC1 09:36 | PROVIDERS: ATTEND Obstetrics & Gynecology | DX: N92.6 Irregular menstruation, unspecified (principal) | CPT/HCPCS: 36415; 84702 ==

== ENCOUNTER 2022-06-07 11:55 | Emergency (ER) | payer OTHER ==
--- NOTE | 2022-06-07 13:41 | ED ---
URI HPI - General Chief Complaint: Upper Respiratory Infection Stated Complaint: weakness, sore throat Time Seen by Provider: 06/07/22 12:25 Source: patient, RN notes reviewed Mode of arrival: ambulatory Limitations: no limitations - History of Present Illness Initial Comments: This a 26-year-old female sent emergency Department chief complaint of fever cough congestion bodyaches. Symptoms started 3-4 days ago. Patient states that her kids have similar symptoms. Patient states that she aches all over, feels weak. Patient denies any drug ALLERGIES denies any significant past medical history denies any GI symptoms including nausea vomiting diarrhea constipation. - Related Data Previous Rx's Medication Instructions Recorded Doxycycline [Vibramycin] 100 mg PO BID 7 Days #14 cap 02/23/21 Allergies Allergy/AdvReac Type Severity Reaction Status Date / Time peanut Allergy Itching Verified 10/12/21 10:03 Review of Systems ROS Statement: Those systems with pertinent positive or pertinent negative responses have been documented in the HPI. ROS Other: All systems not noted in ROS Statement are negative. Past Medical History Past Medical History: No Reported History History of Any Multi-Drug Resistant Organisms: None Reported Past Surgical History: No Surgical Hx Reported Additional Past Surgical History / Comment(s): Past Anesthesia/Blood Transfusion Reactions: No Reported Reaction Past Psychological History: No Psychological Hx Reported Past Alcohol Use History: None Reported Past Drug Use History: None Reported General Exam Limitations: no limitations General appearance: alert, in no apparent distress Head exam: Present: atraumatic, normocephalic, normal inspection Eye exam: Present: normal appearance, PERRL, EOMI. Absent: scleral icterus, conjunctival injection, periorbital swelling ENT exam: Present: normal exam, normal oropharynx, mucous membranes moist Neck exam: Present: normal inspection, full ROM. Absent: tenderness, meningismus, lymphadenopathy Respiratory exam: Present: normal lung sounds bilaterally. Absent: respiratory distress, wheezes, rales, rhonchi, stridor Cardiovascular Exam: Present: regular rate, normal rhythm, normal heart sounds. Absent: systolic murmur, diastolic murmur, rubs, gallop, clicks GI/Abdominal exam: Present: soft, normal bowel sounds. Absent: distended, tenderness, guarding, rebound, rigid Course Vital Signs 06/07/22 12:19 Temperature 99.3 F Pulse Rate 100 Respiratory 20 Rate Blood Pressure 132/78 O2 Sat by Pulse 95 Oximetry Medical Decision Making - Medical Decision Making 26-year-old presented for URI symptoms. Patient's influenza A positive. Patient will be discharged in stable condition return parameters were discussed. - Lab Data Lab Results 06/07/22 Range/Units 12:36 Influenza Type A (PCR) Detected A (Not Detectd) Influenza Type B (PCR) Not Detected (Not Detectd) RSV (PCR) Not Detected (Not Detectd) SARS-CoV-2 (PCR) Not Detected (Not Detectd) Disposition Clinical Impression: Influenza A Disposition: HOME SELF-CARE Condition: Stable Instructions (If sedation given, give patient instructions): Influenza (ED) Additional Instructions: Please return to the Emergency Department if symptoms worsen or any other concerns. Is patient prescribed a controlled substance at d/c from ED?: No Referrals: None,Stated [Primary Care Provider] - 1-2 days Time of Disposition: 13:41
[2022-06-07 14:17] VITALS: BP 105/74; PULSE 84; RESP 16; TEMP 99.5
== END 2022-06-07 14:12 | disposition home or self-care (01) ==
LOC: EC 11:55
DX: J10.1 Influenza due to other identified influenza virus with other respiratory manifestations (principal); Z91.010 Allergy to peanuts; Z20.822 Contact with and (suspected) exposure to COVID-19
CPT/HCPCS: 87636; 99284

== ENCOUNTER 2023-10-20 00:58 | Emergency (ER) | payer OTHER ==
[2023-10-20 01:48] VITALS: TEMP 98.2
--- NOTE | 2023-10-20 02:44 | XR ---
EXAM: XR Chest, 2 Views CLINICAL HISTORY: cough TECHNIQUE: Frontal and lateral views of the chest. COMPARISON: 06/29/19 FINDINGS: Lungs: Small amount of right basilar airspace opacities. Pleural space: Unremarkable. Mediastinum: Unremarkable. Normal mediastinal contour. Bones/joints: No acute findings. IMPRESSION: Small amount of right basilar atelectasis and/or pneumonia
--- NOTE | 2023-10-20 03:59 | ED ---
URI HPI - General Chief Complaint: Upper Respiratory Infection Stated Complaint: MARCOS, side pain Time Seen by Provider: 10/20/23 03:21 Source: patient Mode of arrival: ambulatory Limitations: no limitations - History of Present Illness Initial Comments: 28-year-old female presenting with chief complaint of pleuritic side pain. Patient states that she has sharp pain under the left breast when she inhales. Pain started this evening. She admits to mild cough. No fevers. No congestion. No nausea, vomiting, abdominal pain. No oral contraceptives, rece nt surgery, recent travel, history of blood clots. No lower extremity swelling. No recent injury or trauma. No lightheadedness or dizziness. - Related Data Previous Rx's Medication Instructions Recorded Doxycycline [Vibramycin] 100 mg PO BID 7 Days #14 cap 02/23/21 Albuterol Sulfate [Albuterol 2 puff PO Q6H PRN #8.5 gm 10/20/23 Sulfate Hfa] Azithromycin [Zithromax Z Pack] 1 tab PO DIRECTED #6 tab 10/20/23 methylPREDNISolone Dose Pack 4 mg PO DIRECTED #1 packet 10/20/23 [Medrol Dose Pack] Allergies Allergy/AdvReac Type Severity Reaction Status Date / Time peanut Allergy Itching Verified 10/20/23 01:23 Review of Systems ROS Statement: Those systems with pertinent positive or pertinent negative responses have been documented in the HPI. ROS Other: All systems not noted in ROS Statement are negative. Past Medical History Past Medical History: No Reported History History of Any Multi-Drug Resistant Organisms: None Reported Past Surgical History: No Surgical Hx Reported Additional Past Surgical History / Comment(s): Past Anesthesia/Blood Transfusion Reactions: No Reported Reaction Past Psychological History: No Psychological Hx Reported Smoking Status: Never smoker Past Alcohol Use History: Occasional Past Drug Use History: None Reported General Exam Limitations: no limitations General appearance: alert, in no apparent distress Head exam: Present: atraumatic, normocephalic Eye exam: Present: normal appearance, EOMI Neck exam: Present: normal inspection. Absent: meningismus Respiratory exam: Present: normal lung sounds bilaterally, wheezes, chest wall tenderness. Absent: respiratory distress, rales, rhonchi, stridor Cardiovascular Exam: Present: regular rate, normal rhythm, normal heart sounds. Absent: systolic murmur, diastolic murmur, rubs, gallop, clicks Extremities exam: Absent: pedal edema Neurological exam: Present: alert, oriented X3 Psychiatric exam: Present: normal affect, normal mood Skin exam: Present: warm, dry Course Vital Signs 10/20/23 10/20/23 10/20/23 01:22 04:12 04:24 Temperature 98.2 F Pulse Rate 71 71 Respiratory 18 16 Rate Blood Pressure 111/76 O2 Sat by Pulse 100 Oximetry 10/20/23 10/20/23 04:33 04:35 Temperature 98.2 F Pulse Rate 74 66 Respiratory 20 Rate Blood Pressure 105/69 O2 Sat by Pulse 99 Oximetry Medical Decision Making - Medical Decision Making Was pt. sent in by a medical professional or institution (, PA, CRYPTOLOGIC TECHNICIAN TECHNICAL, urgent care, hospital, or [facility]...) When possible be specific @ -No Did you speak to anyone other than the patient for history (EMS, parent, family, police, friend...)? What history was obtained from this source @ -No Did you review nursing and triage notes (agree or disagree)? Why? @ -I reviewed and agree with nursing and triage notes Were old charts reviewed (outside hosp., previous admission, EMS record, old EKG, old radiological studies, urgent care reports/EKG's, [facility] records)? Report findings @ -No old charts were reviewed Differential Diagnosis (chest pain, altered mental status, abdominal pain women, abdominal pain men, vaginal bleeding, weakness, fever, dyspnea, syncope, headache, dizziness, GI bleed, back pain, seizure, CVA, palpatations, mental health, musculoskeletal)? @ -MDM Differential Dyspnea: Coronary syndrome, arrhythmia, tamponade, asthma, COPD, pulmonary embolism, pneumonia, pneumothorax, pulmonary effusion, anaphylaxis, diabetic ketoacidosis, flailed chest, pulmonary contusion, diaphragmatic rupture, anemia, neuromuscular this is not meant to be an all-inclusive list. EKG interpreted by me (3pts min.). @ -EKG shows sinus rhythm ventricular rate 71. PA interval 183. QRS 83. QT 380. QTc 402. X-rays interpreted by me (1pt min.). @ -Chest x-ray shows small amount of right basilar atelectasis and/or pneumonia CT interpreted by me (1pt min.). @ -None done U/S interpreted by me (1pt. min.). @ -None done What testing was considered but not performed or refused? (CT, X-rays, U/S, labs)? Why? @ -D-dimer was considered, shared decision-making was utilized and the patient elected to proceed with treatment for pneumonia and return to ER with any new or worsening symptoms. What meds were considered but not given or refused? Why? @ -None Did you discuss the management of the patient with other professionals (professionals i.e. DrMarian, PA, CRYPTOLOGIC TECHNICIAN TECHNICAL, lab, RT, psych nurse, director social welfare, associate financial advisor, teacher, president and chief commercial officer, trimming caser)? Give summary @ -No Was smoking cessation discussed for >3mins.? @ -No Was critical care preformed (if so, how long)? @ -No Were there social determinants of health that impacted care today? How? (Homelessness, low income, unemployed, alcoholism, drug addiction, transportation, low edu. Level, literacy, decrease access to med. care, longterm, rehab)? @ -No Was there de-escalation of care discussed even if they declined (Discuss DNR or withdrawal of care, Hospice)? DNR status @ -No What co-morbidities impacted this encounter? (DM, HTN, Smoking, COPD, CAD, Cancer, CVA, ARF, Chemo, Hep., AIDS, mental health diagnosis, sleep apnea, morbid obesity)? @ -None Was patient admitted / discharged? Hospital course, mention meds given and route, prescriptions, significant lab abnormalities, going to OR and other pertinent info. @ -28-year-old female presenting with chief complaint of pleuritic pain under the left breast that started this evening. On physical exam the pain is reproducible. No lower extremity swelling. Mild wheezes heard on exam. PERC negative. EKG shows sinus rhythm. Chest x-ray shows small amount of atelectasis and or pneumonia. The patient is treated with Toradol, Decadron, and DuoNeb. She is educated on today's findings. I discussed with the patient testing for PE including lab work and possible chest CT. We discussed the pros and cons of testing today as well as any risk factors, which the patient had none. The patient would like to proceed with treatment for pneumonia and return to the ER with any worsening symptoms. Given that she is PERC negative I believe that this is reasonable. She will be treated with azithromycin, Medrol Dosepak, and provided with albuterol inhaler. Discharged home. Follow-up with PCP. Report back to ER with any new or worsening symptoms. Discussed return parameters and answered all questions. Patient conveyed verbal understanding and agreed to the plan. I discussed this case in detail with my attending Dr. Rosales Undiagnosed new problem with uncertain prognosis? @ -No Drug Therapy requiring intensive monitoring for toxicity (Heparin, Nitro, Insulin, Cardizem)? @ -No Were any procedures done? @ -No Diagnosis/symptom? @Pneumonia Acute, or Chronic, or Acute on Chronic? @ -Acute Uncomplicated (without systemic symptoms) or Complicated (systemic symptoms)? @ -Uncomplicated Side effects of treatment? @ -No Exacerbation, Progression, or Severe Exacerbation? @ -No Poses a threat to life or bodily function? How? (Chest pain, [place], [place], pneumonia, PE, COPD, DKA, ARF, appy, cholecystitis, CVA, Diverticulitis, Homicidal, Suicidal, threat to staff... and all critical care pts) @ -Low likelihood - Lab Data Lab Results 10/20/23 Range/Units 01:26 Influenza Type A (PCR) Not Detected (Not Detectd) Influenza Type B (PCR) Not Detected (Not Detectd) RSV (PCR) Not Detected (Not Detectd) SARS-CoV-2 (PCR) Not Detected (Not Detectd) Disposition Clinical Impression: Pneumonia Disposition: HOME SELF-CARE Condition: Good Instructions (If sedation given, give patient instructions): Community Acquired Pneumonia (ED) Additional Instructions: Follow-up with your PCP. Report back to ER with any new or worsening symptoms. Alternate Motrin and Tylenol as needed for pain control. Take medication as prescribed. Prescriptions: Albuterol Sulfate [Albuterol Sulfate Hfa] 2 puff PO Q6H PRN #8.5 gm PRN Reason: Shortness Of Breath methylPREDNISolone Dose Pack [Medrol Dose Pack] 4 mg PO DIRECTED #1 packet Azithromycin [Zithromax Z Pack] 1 tab PO DIRECTED #6 tab Is patient prescribed a controlled substance at d/c from ED?: No Referrals: None,Stated [Primary Care Provider] - 1-2 days Time of Disposition: 03:59
[2023-10-20] MEDS: DEXAMETHASONE SOD PHOSPHATE 10 MG/ML 1 ML VIAL IM STA (04:20)
[2023-10-20] MEDS: KETOROLAC 15 MG/ML 1 ML VIAL IM STA (04:21)
[2023-10-20] MEDS: IPRATROPIUM-ALBUTEROL 3 ML NEB INHALATION STA (04:24)
[2023-10-20 05:11] VITALS: BP 105/69; PULSE 66; RESP 20
== END 2023-10-20 05:19 | disposition home or self-care (01) ==
LOC: EC 00:58
DX: J18.9 Pneumonia, unspecified organism (principal); Z91.010 Allergy to peanuts
CPT/HCPCS: 94640; 93005; 87636; 71046; 99285; 96372 ×2; J1100; J1885

== ENCOUNTER 2024-04-14 06:00 | Emergency (ER) | payer OTHER ==
[2024-04-14 06:09] VITALS: BP 117/78; PULSE 75; RESP 18; TEMP 98
--- NOTE | 2024-04-14 06:34 | ED ---
Abdominal Pain HPI - General Chief Complaint: Abdominal Pain Stated Complaint: MARCOS, Vomitting Time Seen by Provider: 04/14/24 06:18 Source: patient, RN notes reviewed Mode of arrival: ambulatory Limitations: no limitations - History of Present Illness Initial Comments: 28-year-old female presents emergency department chief complaint of nausea, vomiting, mid chest pain. States that at 4 AM she had an episode of emesis. Over the past week she has not been feeling well with a sore throat and a mild cough. She denies fevers, chills, urinary or bowel habit changes. Patient states that she believes she has been having symptoms of acid reflux over the past few weeks to months. Patient has been eating meals before bed has been experiencing burning in her chest during the middle of the night causing her to wake up. Denies previous surgical abdominal history. - Related Data Previous Rx's Medication Instructions Recorded Doxycycline [Vibramycin] 100 mg PO BID 7 Days #14 cap 02/23/21 Albuterol Sulfate [Albuterol 2 puff PO Q6H PRN #8.5 gm 10/20/23 Sulfate Hfa] Azithromycin [Zithromax Z Pack] 1 tab PO DIRECTED #6 tab 10/20/23 methylPREDNISolone Dose Pack 4 mg PO DIRECTED #1 packet 10/20/23 [Medrol Dose Pack] Omeprazole [PriLOSEC] 20 mg PO AC-BRKFST #14 cap 04/14/24 Ondansetron Odt [Zofran Odt] 4 mg PO Q8HR PRN #10 tab 04/14/24 Allergies Allergy/AdvReac Type Severity Reaction Status Date / Time peanut Allergy Itching Verified 04/14/24 06:09 Review of Systems ROS Statement: Those systems with pertinent positive or pertinent negative responses have been documented in the HPI. ROS Other: All systems not noted in ROS Statement are negative. Past Medical History Past Medical History: No Reported History History of Any Multi-Drug Resistant Organisms: None Reported Past Surgical History: No Surgical Hx Reported Additional Past Surgical History / Comment(s): Past Anesthesia/Blood Transfusion Reactions: No Reported Reaction Past Psychological History: No Psychological Hx Reported Smoking Status: Never smoker Past Alcohol Use History: Occasional Past Drug Use History: None Reported General Exam - General Exam Comments Initial Comments: Visual Physical Exam Vital signs reviewed General: Well-appearing, nontoxic, no acute distress. Head: Normocephalic, atraumatic Eyes: PERRLA, EOMI ENT: Airway patent Chest: Nonlabored breathing Skin: No visual rash, normal skin tone Neuro: Alert and oriented 3 Musculoskeletal: No gross abnormalities Limitations: no limitations General appearance: alert, in no apparent distress ENT exam: Present: normal exam, mucous membranes moist Neck exam: Present: normal inspection. Absent: tenderness, meningismus, lymphadenopathy Respiratory exam: Present: normal lung sounds bilaterally. Absent: respiratory distress, wheezes, rales, rhonchi, stridor Cardiovascular Exam: Present: regular rate, normal rhythm, normal heart sounds. Absent: systolic murmur, diastolic murmur, rubs, gallop, clicks GI/Abdominal exam: Present: soft, tenderness (epigastric, RUQ), normal bowel sounds. Absent: distended, guarding, rebound, rigid Extremities exam: Present: normal inspection, full ROM, normal capillary refill. Absent: tenderness, pedal edema, joint swelling, calf tenderness Back exam: Present: normal inspection Skin exam: Present: warm, dry, intact, normal color. Absent: rash Course Vital Signs 04/14/24 06:07 Temperature 98 F Pulse Rate 75 Respiratory 18 Rate Blood Pressure 117/78 O2 Sat by Pulse 97 Oximetry Medical Decision Making - Medical Decision Making Was pt. sent in by a medical professional or institution (ELPIDIO Haywood, ASSISTANT ACCOUNT EXECUTIVE, urgent care, hospital, or residential...) When possible be specific @ -No Did you speak to anyone other than the patient for history (EMS, parent, family, police, friend...)? What history was obtained from this source @ -No Did you review nursing and triage notes (agree or disagree)? Why? @ -I reviewed and agree with nursing and triage notes Were old charts reviewed (outside hosp., previous admission, EMS record, old EKG, old radiological studies, urgent care reports/EKG's, residential records)? Report findings @ -No old charts were reviewed Differential Diagnosis (chest pain, altered mental status, abdominal pain women, abdominal pain men, vaginal bleeding, weakness, fever, dyspnea, syncope, headache, dizziness, GI bleed, back pain, seizure, CVA, palpatations, mental health, musculoskeletal)? @Differential Abdominal Pain Women: Appendicitis, Cholecystitis, diverticulosis, ischemic bowel, pancreatitis, hepatitis, UTI, gastroenteritis, AAA, incarcerated hernia, bowel obstruction, constipation, inflammatory bowel, hepatitis, peptic ulcer disease, splenic infarction, perforated viscus, vulvitis, ovarian torsion, PID, kidney stone, placenta abruption, this is not meant to be an all-inclusive list EKG interpreted by me (3pts min.). @ -none X-rays interpreted by me (1pt min.). @ -Chest x-ray no acute cardiopulmonary process or disease CT interpreted by me (1pt min.). @ -None done U/S interpreted by me (1pt. min.). @ -US of the gallbladder reveals no significant abnormality noted What testing was considered but not performed or refused? (CT, X-rays, U/S, labs)? Why? @ -None What meds were considered but not given or refused? Why? @ -None Did you discuss the management of the patient with other professionals (professionals i.e. , PA, ASSISTANT ACCOUNT EXECUTIVE, lab, RT, psych nurse, social media job titles, clinical therapist, teacher, evp and chief operating officer, child welfare caseworker)? Give summary @ -No Was smoking cessation discussed for >3mins.? @ -No Was critical care preformed (if so, how long)? @ -No Were there social determinants of health that impacted care today? How? (Homelessness, low income, unemployed, alcoholism, drug addiction, transportation, low edu. Level, literacy, decrease access to med. care, [facility] [facility], rehab)? @ -No Was there de-escalation of care discussed even if they declined (Discuss DNR or withdrawal of care, Hospice)? DNR status @ -No What co-morbidities impacted this encounter? (DM, HTN, Smoking, COPD, CAD, Cancer, CVA, ARF, Chemo, Hep., AIDS, mental health diagnosis, sleep apnea, morbid obesity)? @ -None Was patient admitted / discharged? Hospital course, mention meds given and route, prescriptions, significant lab abnormalities, going to OR and other pertinent info. @ -Discharge. 28-year-old female with nausea, vomiting, epigastric and abdominal pain. On my evaluation the patient is resting comfortably no acute distress. Her vitals are stable. Physical examination remarkable for right upper quadrant tenderness to palpation epigastric tenderness to palpation as well. States that pain in her epigastric will radiate into her chest described as a burning sensation. CBC, CMP unremarkable, amylase and lipase within normal limits, urinalysis unremarkable, hCG negative. Chest x-ray and ultrasound of the abdomen negative for acute process. Patient symptoms are likely secondary to acid reflux/gastroesophageal reflux disease. Patient will be provided with prescription for Zofran strictly to take as needed and a trial course of omeprazole to take 1 tablet/day over the next 2 weeks and follow-up with her primary care provider for further evaluation for continuation of care. Additionally, education for patient bedside to recommend not eating foods before bedtime and limiting the amount of acidity she is eating such as tomatoes, coffee, high fatty foods. All questions answered at bedside and strict return parameters have been discussed with the patient she is verbalized understanding. Case discussed with Dr. Mancuso Undiagnosed new problem with uncertain prognosis? @ -No Drug Therapy requiring intensive monitoring for toxicity (Heparin, Nitro, Insulin, Cardizem)? @ -No Were any procedures done? @ -No Diagnosis/symptom? @ -GERD Acute, or Chronic, or Acute on Chronic? @ -acute Uncomplicated (without systemic symptoms) or Complicated (systemic symptoms)? @ -uncomplicated Side effects of treatment? @ -No Exacerbation, Progression, or Severe Exacerbation? @ -No Poses a threat to life or bodily function? How? (Chest pain, [place], [place], pneumonia, PE, COPD, DKA, ARF, appy, cholecystitis, CVA, Diverticulitis, Homicidal, Suicidal, threat to staff... and all critical care pts) @ -No - Lab Data Result diagrams: 04/14/24 06:11 04/14/24 06:11 Lab Results 04/14/24 04/14/24 04/14/24 Range/Units 06:11 06:11 06:11 WBC 7.5 (3.8-10.6) k/uL RBC 4.50 (3.80-5.40) m/uL Hgb 13.6 (11.4-16.0) gm/dL Hct 40.7 (34.0-46.0) % MCV 90.3 (80.0-100.0) fL MCH 30.1 (25.0-35.0) pg MCHC 33.4 (31.0-37.0) g/dL RDW 12.1 (11.5-15.5) % Plt Count 178 (150-450) k/uL MPV 8.6 Neutrophils % 52 % Lymphocytes % 34 % Monocytes % 4 % Eosinophils % 5 % Basophils % 1 % Neutrophils # 3.9 (1.3-7.7) k/uL Lymphocytes # 2.6 (1.0-4.8) k/uL Monocytes # 0.3 (0-1.0) k/uL Eosinophils # 0.4 (0-0.7) k/uL Basophils # 0.1 (0-0.2) k/uL Sodium (137-145) mmol/L Potassium (3.5-5.1) mmol/L Chloride (98-107) mmol/L Carbon Dioxide (22-30) mmol/L Anion Gap mmol/L BUN (7-17) mg/dL Creatinine (0.52-1.04) mg/dL Est GFR (CKD-EPI)AfAm (>60 ml/min/1.73 sqM) Est GFR (CKD-EPI)NonAf (>60 ml/min/1.73 sqM) Glucose (74-99) mg/dL Calcium (8.4-10.2) mg/dL Total Bilirubin (0.2-1.3) mg/dL AST (14-36) U/L ALT (4-34) U/L Alkaline Phosphatase (38-126) U/L Total Protein (6.3-8.2) g/dL Albumin (3.5-5.0) g/dL Amylase (30-110) U/L Lipase (23-300) U/L Urine Color Colorless Urine Appearance Clear (Clear) Urine pH 6.5 (5.0-8.0) Ur Specific [place] 1.019 (1.001-1.035) Urine Protein Negative (Negative) Urine Glucose (UA) Negative (Negative) Urine Ketones Negative (Negative) Urine Blood Negative (Negative) Urine Nitrite Negative (Negative) Urine Bilirubin Negative (Negative) Urine Urobilinogen <2.0 (<2.0) mg/dL Ur Leukocyte Esterase Negative (Negative) Urine HCG, Qual Not Detected (Not Detectd) 04/14/24 Range/Units 06:11 WBC (3.8-10.6) k/uL RBC (3.80-5.40) m/uL Hgb (11.4-16.0) gm/dL Hct (34.0-46.0) % MCV (80.0-100.0) fL MCH (25.0-35.0) pg MCHC (31.0-37.0) g/dL RDW (11.5-15.5) % Plt Count (150-450) k/uL MPV Neutrophils % % Lymphocytes % % Monocytes % % Eosinophils % % Basophils % % Neutrophils # (1.3-7.7) k/uL Lymphocytes # (1.0-4.8) k/uL Monocytes # (0-1.0) k/uL Eosinophils # (0-0.7) k/uL Basophils # (0-0.2) k/uL Sodium 137 (137-145) mmol/L Potassium 4.0 (3.5-5.1) mmol/L Chloride 109 H (98-107) mmol/L Carbon Dioxide 26 (22-30) mmol/L Anion Gap 2 mmol/L BUN 10 (7-17) mg/dL Creatinine 0.84 (0.52-1.04) mg/dL Est GFR (CKD-EPI)AfAm >90 (>60 ml/min/1.73 sqM) Est GFR (CKD-EPI)NonAf >90 (>60 ml/min/1.73 sqM) Glucose 102 H (74-99) mg/dL Calcium 9.0 (8.4-10.2) mg/dL Total Bilirubin 0.5 (0.2-1.3) mg/dL AST 20 (14-36) U/L ALT 19 (4-34) U/L Alkaline Phosphatase 42 (38-126) U/L Total Protein 5.6 L (6.3-8.2) g/dL Albumin 3.4 L (3.5-5.0) g/dL Amylase 44 (30-110) U/L Lipase 87 (23-300) U/L Urine Color Urine Appearance (Clear) Urine pH (5.0-8.0) Ur Specific [place] (1.001-1.035) Urine Protein (Negative) Urine Glucose (UA) (Negative) Urine Ketones (Negative) Urine Blood (Negative) Urine Nitrite (Negative) Urine Bilirubin (Negative) Urine Urobilinogen (<2.0) mg/dL Ur Leukocyte Esterase (Negative) Urine HCG, Qual (Not Detectd) Disposition Clinical Impression: GERD (gastroesophageal reflux disease), Vomiting Disposition: HOME SELF-CARE Condition: Good Instructions (If sedation given, give patient instructions): Omeprazole (By mouth), GERD (Gastroesophageal Reflux Disease) (ED) Additional Instructions: Please return to the Emergency Department if symptoms worsen or any other concerns. Take omeprazole as prescribed and Zofran as needed. Recommend follow-up with your primary care provider this week as well for further evaluation. Prescriptions: Omeprazole [PriLOSEC] 20 mg PO AC-BRKFST #14 cap Ondansetron Odt [Zofran Odt] 4 mg PO Q8HR PRN #10 tab PRN Reason: Nausea Is patient prescribed a controlled substance at d/c from ED?: No Referrals: None,Stated [Primary Care Provider] - 1-2 days Time of Disposition: 08:29
[2024-04-14 06:39] LABS: Basophils # (A) 0.1 k/uL (0-0.2); Basophils % (A) 1 %; Eosinophils # (A) 0.4 k/uL (0-0.7); Eosinophils % (A) 5 %; HCT 40.7 % (34.0-46.0); HGB 13.6 gm/dL (11.4-16.0); Lymphocytes # (A) 2.6 k/uL (1.0-4.8); Lymphocytes % (A) 34 %; MCH 30.1 pg (25.0-35.0); MCHC 33.4 g/dL (31.0-37.0); MCV 90.3 fL (80.0-100.0); Mean Platelet Volume 8.6; Monocytes # (A) 0.3 k/uL (0-1.0); Monocytes % (A) 4 %; Neutrophils # (A) 3.9 k/uL (1.3-7.7); Neutrophils % (A) 52 %; Platelet Count 178 k/uL (150-450); RDW 12.1 % (11.5-15.5); WBC 7.5 k/uL (3.8-10.6)
[2024-04-14 06:46] LABS: ALT 19 U/L (4-34); AST 20 U/L (14-36); African American GFR (CKD) >90 (>60 ml/min/1.73 sqM); Albumin 3.4 g/dL (3.5-5.0); Alkaline Phosphatase 42 U/L (38-126); Amylase 44 U/L (30-110); Anion Gap 2 mmol/L; Blood Urea Nitrogen 10 mg/dL (7-17); Carbon Dioxide 26 mmol/L (22-30); Chloride 109 mmol/L (98-107); Glucose 102 mg/dL (74-99); Lipase 87 U/L (23-300); Non-African American GFR(CKD) >90 (>60 ml/min/1.73 sqM); Sodium 137 mmol/L (137-145); Total Bilirubin 0.5 mg/dL (0.2-1.3); Total Protein 5.6 g/dL (6.3-8.2)
[2024-04-14 07:43] LABS: Appearance,Urine Clear (Clear); Bilirubin,Urine Negative (Negative); Blood,Urine Negative (Negative); Color,Urine Colorless; Glucose,Urine (UA) Negative (Negative); Ketones,Urine Negative (Negative); Leukocyte Esterase,Urine Negative (Negative); Nitrite,Urine Negative (Negative); PH, Urine 6.5 (5.0-8.0); Protein,Urine Negative (Negative); Specific Gravity,Urine 1.019 (1.001-1.035); Urobilinogen,Urine <2.0 mg/dL (<2.0)
--- NOTE | 2024-04-14 08:02 | US ---
EXAMINATION TYPE: US gallbladder DATE OF EXAM: 04/14/2024 COMPARISON: NONE CLINICAL INDICATION: Female, 28 years old with history of RUQ/epigastric pain; TECHNIQUE: Grayscale and color Doppler imaging of the right upper quadrant was performed. FINDINGS: EXAM MEASUREMENTS: Liver Length: 14.0 cm Gallbladder Wall: 0.2 cm CBD: 0.3 cm Right Kidney: 10.4 x 4.9 x 4.5 cm Pancreas: visualized portions wnl, limited by overlying midline bowel gas Liver: wnl Gallbladder: wnl Evidence for sonographic Jalloh's sign: no CBD: visualized portions wnl, limited by overlying bowel gas Right Kidney: wnl IMPRESSION: No significant abnormality seen. [facility], , 04/14/2024 8:00 AM
--- NOTE | 2024-04-14 08:15 | XR ---
EXAMINATION TYPE: XR chest 2V DATE OF EXAM: 04/14/2024 COMPARISON: [id number] HISTORY: Chest pain TECHNIQUE: Frontal and lateral views of the chest are obtained. FINDINGS: There is no focal air space opacity, pleural effusion, or pneumothorax seen. The cardiac silhouette size is within normal limits. The osseous structures are intact. IMPRESSION: No acute cardiopulmonary process. [facility], Workstation: [facility], 04/14/2024 8:13 AM
== END 2024-04-14 08:52 | disposition home or self-care (01) ==
LOC: EC 06:00
CPT/HCPCS: 36415; 71046; 76705; 80053; 81003; 81025; 82150; 83690; 85025; 99284